=== PATIENT | female | born 1945 | race Caucasian/White ===

== ENCOUNTER 2019-05-01 05:50 | Day surgery (SDC) | payer OTHER ==
[~2019-05-01] VITALS: Ht 154.9 cm; Wt 76.0 kg
[~2019-05-01 05:50] MED LIST: ALBU3IS INH; ASPI325 PO; ASPI325EC PO; ASPI81CH PO; ATEN25 PO; ATEN50; ATEN50 PO; ATOR40TA PO; BENAML10/2 PO; CEPH500 PO; CHOL10002 PO; CLIN150 PO; ESCI10; ESCI20 PO; ESCI5 PO; EXEN5PENI SC; FLUSAL2505 IH; FURO40; FURO40 PO; GLIM4; GLIP10 PO; GLIP5 PO; Humalog100 UNIT/1; INSULANI SC; INSULANI SUBQ; INSULANPEN SC; ISOMON30 PO; Isosorbide Mono60 MG PO; K-Dur 20 meq T20 MEQ PO; K-Dur10 MEQ PO; LEVSOD100 PO; LEVSOD50 PO; LISI5 PO; LOTREL; Lopressor 25 mg25 MG PO; METF500 PO; METF500C PO; METO25 PO; OXYACE5T PO; POTA10T; POTA10T PO; POTCHL20ER PO; PROM25 PO; Prednisone10 MG PO; ROSI4; RXCEPH500 PO; RXCLIN PO; WARF5 PO
--- NOTE | 2019-05-01 10:30 | NUR ---
DR FISHMAN IN ROOM DISCUSSING PLAN OF CARE WITH PT AND FAMILY. VSS. NADN. R FEMORAL SITE REMAINS STABLE. CALL LIGHT WITHIN REACH.
--- NOTE | 2019-05-01 12:30 | NUR ---
PT SITTING UP IN BED, GRACIA. VSS. R FEM SITE REMAINS CLEAR. CALL LIGHT WITHIN REACH. PT EATING LUNCH AT THIS TIME.
--- NOTE | 2019-05-01 13:14 | NUR ---
PT ASSISTED TO RESTROOM AND BACK WITHOUT DIFF. PT ASSISTS WITH DRESSING SELF. VSS. NADN. PT AND DAUGHTER VERBALIZES UNDERSTANDING WRITTEN AND VERBAL ORDERS. IV DC'D. CATH INTACT. PRESSURE DSG APPLIED. FEM SITE REMAINS STABLE. PT DC TO HOME VIA WC BY DAUGHTER.
== END 2019-05-01 22:46 | disposition home or self-care (01) ==
LOC: MHTC 05:50
DX: T82.858A Stenosis of other vascular prosthetic devices, implants and grafts, initial encounter (principal); I25.10 Atherosclerotic heart disease of native coronary artery without angina pectoris; I25.5 Ischemic cardiomyopathy; I27.20 Pulmonary hypertension, unspecified; I08.1 Rheumatic disorders of both mitral and tricuspid valves; E11.42 Type 2 diabetes mellitus with diabetic polyneuropathy; E11.319 Type 2 diabetes mellitus with unspecified diabetic retinopathy without macular edema; E78.00 Pure hypercholesterolemia, unspecified; E11.22 Type 2 diabetes mellitus with diabetic chronic kidney disease; I12.9 Hypertensive chronic kidney disease with stage 1 through stage 4 chronic kidney disease, or unspecified chronic kidney disease; N18.3 Chronic kidney disease, stage 3 (moderate); Z79.899 Other long term (current) drug therapy; Z88.2 Allergy status to sulfonamides; Z86.73 Personal history of transient ischemic attack (TIA), and cerebral infarction without residual deficits; Z88.4 Allergy status to anesthetic agent
CPT/HCPCS: 82947; 86850; 86900; 86901; 93461; 99152; 99153; C1769; C1894; J1644; J2250; J3010; J7030; Q9967

== ENCOUNTER 2019-10-13 06:31 | Day surgery (SDC) | payer OTHER ==
[~2019-10-13] VITALS: Ht 154.9 cm; Wt 76.3 kg
[~2019-10-13 06:31] MED LIST changes: +ALBU90OI INH; +CARV3.125 PO; +CLOP75 PO; +LOSA25 PO; +LOW DOSE ASPIRI81 M1; +PANT40 PO; +THERA-D2000 UNIT PO
--- NOTE | 2019-10-13 12:30 | NUR ---
Pt arrived to room [id number] from HC. VSS. LS clear. HR reg. Pacer site to R chest wall without oozing, swelling, bleeding or pain. Bulkey dressing intact. Pt oriented to room and unit. Call light in reach.
--- NOTE | 2019-10-13 19:26 | NUR ---
Pt resting in bed with family at bedside. Has done well this shift. Has denied pain to R chest wall throughout the shift. VSS throughout the shift. No changes in pacer site. Stable at end of shift. Will report to night Rn.
--- NOTE | 2019-10-14 07:27 | NUR ---
SHIFT SUMMARY PATIENT PLEASENT AND COOPERATIVE THROUGHOUT THE NIGHT. PATIENT APPEARED TO SLEEP WELL LAST NIGHT. PATIENT DENIES ANY PAIN OR DISCOMFORT THIS MORNING STATING, "I FEEL GOOD." PATIENT'S PACEMAKER SITE APPEARS TO HAVE NO SIGNS OF BLEEDING AT THIS TIME. SLING IN PLACE PER ORDERS. IV ABX GIVEN PER ORDERS. BEDSIDE REPORT GIVEN TO ONCOMING RN.
--- NOTE | 2019-10-14 07:30 | NUR ---
Pt sitting up in chair eating breakfast. Denies pain. States that she is feeling good and that she will get to go home after her xray. LS clear. HR reg. Bt positive. Pacer site with dressing c/d/i. R arm in sling. Denies other needs. Call light in reach. Will monitor.
--- NOTE | 2019-10-14 09:55 | NUR ---
Pt was given verbal and cole discharge instructions. IV was discontinued, cath intact. Pt denies questions or concerns about discharge. Pt had assistance with getting dressed from MAIL SORTER. Left via w/c with MAIL SORTER. Stable at time of discharge.
== END 2019-10-14 09:55 | disposition home or self-care (01) ==
LOC: MHTC 06:31 → PCU 11:00 → MHTC 10-14 09:55
DX: I25.5 Ischemic cardiomyopathy (principal); I25.10 Atherosclerotic heart disease of native coronary artery without angina pectoris; E11.42 Type 2 diabetes mellitus with diabetic polyneuropathy; E78.5 Hyperlipidemia, unspecified; E11.319 Type 2 diabetes mellitus with unspecified diabetic retinopathy without macular edema; E11.22 Type 2 diabetes mellitus with diabetic chronic kidney disease; I13.10 Hypertensive heart and chronic kidney disease without heart failure, with stage 1 through stage 4 chronic kidney disease, or unspecified chronic kidney disease; N18.3 Chronic kidney disease, stage 3 (moderate); F41.9 Anxiety disorder, unspecified; F32.9 Major depressive disorder, single episode, unspecified; I25.810 Atherosclerosis of coronary artery bypass graft(s) without angina pectoris; I25.82 Chronic total occlusion of coronary artery; E78.00 Pure hypercholesterolemia, unspecified; I27.20 Pulmonary hypertension, unspecified; I08.1 Rheumatic disorders of both mitral and tricuspid valves; Z86.73 Personal history of transient ischemic attack (TIA), and cerebral infarction without residual deficits; Z79.4 Long term (current) use of insulin; Z79.82 Long term (current) use of aspirin; Z88.4 Allergy status to anesthetic agent; Z88.2 Allergy status to sulfonamides; Z79.899 Other long term (current) drug therapy; Z79.02 Long term (current) use of antithrombotics/antiplatelets
CPT/HCPCS: 33249; 71045; 71046; 76937; 82947; 99152; 99153; C1721; C1769; C1895; C1898; J0690; J1644; J2250; J3010; J7030; J7040; J7050

== ENCOUNTER 2020-01-12 13:49 | Inpatient (IN) | payer OTHER ==
[~2020-01-12] VITALS: Ht 152.4 cm; Wt 84.0 kg
[~2020-01-12 13:49] MED LIST changes: +FURO20 PO
[2020-01-12 15:20] LABS: BASOPHILS ABSOLUTE AUTO 0.02 K/mm3 (0.00-0.23); BASOPHILS PERCENT AUTO 1 % (0-2); EOSINOPHILS ABSOLUTE AUTO 0.07 K/mm3 (0.00-0.68); EOSINOPHILS PERCENT AUTO 2 % (0-6); Hematocrit 41.1 % (33.0-51.0); Hemoglobin 12.7 g/dL (11.5-16.0); IMMATURE GRAN PERCENT AUTO 0 % (0-1); LYMPHOCYTES ABSOLUTE AUTO 1.03 K/mm3 (0.84-5.20); LYMPHOCYTES PERCENT AUTO 25 % (21-46); MONOCYTES ABSOLUTE AUTO 0.33 K/mm3 (0.16-1.47); MONOCYTES PERCENT AUTO 8 % (4-13); Mean Corpuscular HGB 29.2 pg (26.0-34.0); Mean Corpuscular HGB Conc 30.9 g/dL (31.5-36.5); Mean Corpuscular Volume 95 fL (80-100); Mean Platelet Volume 11.6 fL (9.1-12.4); NEUTROPHILS ABSOLUTE AUTO 2.71 K/mm3 (1.96-9.15); NEUTROPHILS PERCENT AUTO 65 % (41-73); Platelet Count 189 K/mm3 (150-400); RDW Coefficient Variation 15.2 % (11.7-14.2); RDW Standard Deviation 52.6 fL (35.1-46.3); Red Blood Cell Count 4.35 M/mm3 (3.80-5.20); White Blood Cell Count 4.16 K/mm3 (4.00-11.30)
[2020-01-12 15:41] LABS: Albumin, Blood 3.9 g/dL (3.4-5.0); Bilirubin, Total 0.8 mg/dL (0.1-1.0); Bun/Creatinine Ratio 26.3 (12.0-20.0); Calcium, Blood 9.5 mg/dL (8.5-10.1); Creatinine, Blood 1.86 mg/dL (0.40-1.00); Globulin, Blood 4.1 g/dL (2.2-4.0); Potassium, Blood 4.9 mmol/L (3.5-5.5)
[2020-01-12] MEDS ORDERED: ASPI325 PO (19:39)
[2020-01-12] MEDS ORDERED: SYNTHROID50 MC1 PO (20:31)
[2020-01-12] MEDS ORDERED: Klor-Con 1010 MEQ PO (20:33)
[2020-01-12] MEDS ORDERED: PANTOPRAZOLE SO40 M2 PO (20:33)
[2020-01-13 05:22] LABS: BASOPHILS ABSOLUTE AUTO 0.02 K/mm3 (0.00-0.23); BASOPHILS PERCENT AUTO 1 % (0-2); EOSINOPHILS PERCENT AUTO 3 % (0-6); Hematocrit 38.2 % (33.0-51.0); Hemoglobin 11.5 g/dL (11.5-16.0); IMMATURE GRAN ABSOLUTE AUTO 0.01 K/mm3 (0.00-0.10); IMMATURE GRAN PERCENT AUTO 0 % (0-1); LYMPHOCYTES PERCENT AUTO 29 % (21-46); MONOCYTES ABSOLUTE AUTO 0.47 K/mm3 (0.16-1.47); MONOCYTES PERCENT AUTO 12 % (4-13); Mean Corpuscular HGB 28.8 pg (26.0-34.0); Mean Corpuscular HGB Conc 30.1 g/dL (31.5-36.5); Mean Corpuscular Volume 96 fL (80-100); Mean Platelet Volume 11.4 fL (9.1-12.4); NEUTROPHILS ABSOLUTE AUTO 2.15 K/mm3 (1.96-9.15); NEUTROPHILS PERCENT AUTO 56 % (41-73); Platelet Count 145 K/mm3 (150-400); RDW Coefficient Variation 15.3 % (11.7-14.2); Red Blood Cell Count 3.99 M/mm3 (3.80-5.20); White Blood Cell Count 3.85 K/mm3 (4.00-11.30)
[2020-01-13 05:37] LABS: Bun/Creatinine Ratio 26.5 (12.0-20.0); Calcium, Blood 9.2 mg/dL (8.5-10.1); Creatinine, Blood 1.85 mg/dL (0.40-1.00); Potassium, Blood 4.3 mmol/L (3.5-5.5)
[2020-01-14 05:17] LABS: Albumin, Blood 3.3 g/dL (3.4-5.0); Anion Gap 8 mmol/L (6-16); Blood Urea Nitrogen 54 mg/dL (8-24); CO2, Blood 26 mmol/L (21-32); Calcium, Blood 9.2 mg/dL (8.5-10.1); Chloride, Blood 107 mmol/L (98-108); Creatinine, Blood 2.16 mg/dL (0.40-1.00); Glomerular Filtration Rate 24 (60-); Glucose, Blood 150 mg/dL (70-99); Phosphorus, Blood 4.4 mg/dL (2.5-4.9); Potassium, Blood 4.1 mmol/L (3.5-5.5); Sodium, Blood 141 mmol/L (136-145)
[2020-01-15 06:06] LABS: Albumin, Blood 3.3 g/dL (3.4-5.0); Anion Gap 6 mmol/L (6-16); Blood Urea Nitrogen 54 mg/dL (8-24); Bun/Creatinine Ratio 26.1 (12.0-20.0); CO2, Blood 27 mmol/L (21-32); Chloride, Blood 107 mmol/L (98-108); Creatinine, Blood 2.07 mg/dL (0.40-1.00); Glomerular Filtration Rate 25 (60-); Glucose, Blood 108 mg/dL (70-99); Phosphorus, Blood 4.2 mg/dL (2.5-4.9); Sodium, Blood 140 mmol/L (136-145)
[2020-01-16 05:27] LABS: Albumin, Blood 3.3 g/dL (3.4-5.0); Anion Gap 7 mmol/L (6-16); Blood Urea Nitrogen 53 mg/dL (8-24); Bun/Creatinine Ratio 23.2 (12.0-20.0); CO2, Blood 29 mmol/L (21-32); Calcium, Blood 8.9 mg/dL (8.5-10.1); Chloride, Blood 105 mmol/L (98-108); Creatinine, Blood 2.28 mg/dL (0.40-1.00); Glomerular Filtration Rate 22 (60-); Glucose, Blood 121 mg/dL (70-99); Phosphorus, Blood 4.4 mg/dL (2.5-4.9); Potassium, Blood 4.1 mmol/L (3.5-5.5); Sodium, Blood 141 mmol/L (136-145)
[2020-01-17 08:25] LABS: Albumin, Blood 3.3 g/dL (3.4-5.0); Anion Gap 6 mmol/L (6-16); Blood Urea Nitrogen 56 mg/dL (8-24); Bun/Creatinine Ratio 25.9 (12.0-20.0); CO2, Blood 30 mmol/L (21-32); Calcium, Blood 8.8 mg/dL (8.5-10.1); Chloride, Blood 105 mmol/L (98-108); Creatinine, Blood 2.16 mg/dL (0.40-1.00); Glomerular Filtration Rate 24 (60-); Glucose, Blood 165 mg/dL (70-99); Sodium, Blood 141 mmol/L (136-145)
[2020-01-17] MEDS ORDERED: FURO20 PO (11:30)
[2020-01-17] MEDS ORDERED: ASPI325 PO (11:33)
[2020-01-17] MEDS ORDERED: PROAIR DIGIHAL90 MCG INH (11:35)
[2020-01-17] MEDS ORDERED: VITAMIN D-32000 UNIT PO (11:39)
== END 2020-01-17 16:00 | disposition home or self-care (01) | DRG 291 ==
LOC: ER 13:49 → MEDS 13:50 → ER 13:50 → MEDS 21:48
PROVIDERS: Internal Medicine; Physician Assistant; ADMIT Internal Medicine
DX: I13.0 Hypertensive heart and chronic kidney disease with heart failure and stage 1 through stage 4 chronic kidney disease, or unspecified chronic kidney disease (principal); I50.23 Acute on chronic systolic (congestive) heart failure; J96.01 Acute respiratory failure with hypoxia; N18.3 Chronic kidney disease, stage 3 (moderate); E11.22 Type 2 diabetes mellitus with diabetic chronic kidney disease; I25.10 Atherosclerotic heart disease of native coronary artery without angina pectoris; I25.5 Ischemic cardiomyopathy; I27.20 Pulmonary hypertension, unspecified; E78.5 Hyperlipidemia, unspecified; F32.9 Major depressive disorder, single episode, unspecified; K21.9 Gastro-esophageal reflux disease without esophagitis; E11.42 Type 2 diabetes mellitus with diabetic polyneuropathy; E11.319 Type 2 diabetes mellitus with unspecified diabetic retinopathy without macular edema; Z95.1 Presence of aortocoronary bypass graft; Z95.810 Presence of automatic (implantable) cardiac defibrillator; Z79.82 Long term (current) use of aspirin; Z79.84 Long term (current) use of oral hypoglycemic drugs; Z79.02 Long term (current) use of antithrombotics/antiplatelets
CPT/HCPCS: 36415; 80048; 80053; 80069; 82947; 83880; 84145; 85025; 96372; 96374; 96376; 97112; 97162; 99284-25; A9270-GY; G0378; J1650; J1940

== ENCOUNTER 2021-03-03 13:38 | Emergency (ER) | payer OTHER ==
[~2021-03-03] VITALS: Ht 152.4 cm; Wt 74.8 kg
[~2021-03-03 13:38] MED LIST changes: +Klor-Con 1010 MEQ PO; +PANTOPRAZOLE SO40 M2 PO; +PROAIR DIGIHAL90 MCG INH; +SYNTHROID50 MC1 PO; +VITAMIN D-32000 UNIT PO
[2021-03-03 14:39] LABS: BASOPHILS ABSOLUTE AUTO 0.02 K/mm3 (0.00-0.23); BASOPHILS PERCENT AUTO 0 % (0-2); EOSINOPHILS PERCENT AUTO 2 % (0-6); Hematocrit 38.3 % (33.0-51.0); Hemoglobin 12.1 g/dL (11.5-16.0); IMMATURE GRAN ABSOLUTE AUTO 0.01 K/mm3 (0.00-0.10); IMMATURE GRAN PERCENT AUTO 0 % (0-1); LYMPHOCYTES ABSOLUTE AUTO 0.96 K/mm3 (0.84-5.20); LYMPHOCYTES PERCENT AUTO 19 % (21-46); MONOCYTES ABSOLUTE AUTO 0.35 K/mm3 (0.16-1.47); MONOCYTES PERCENT AUTO 7 % (4-13); Mean Corpuscular HGB 30.3 pg (26.0-34.0); Mean Corpuscular HGB Conc 31.6 g/dL (31.5-36.5); Mean Corpuscular Volume 96 fL (80-100); Mean Platelet Volume 11.5 fL (9.1-12.4); NEUTROPHILS ABSOLUTE AUTO 3.65 K/mm3 (1.96-9.15); NEUTROPHILS PERCENT AUTO 72 % (41-73); Platelet Count 158 K/mm3 (150-400); RDW Coefficient Variation 13.4 % (11.7-14.2); RDW Standard Deviation 47.7 fL (35.1-46.3); White Blood Cell Count 5.09 K/mm3 (4.00-11.30)
[2021-03-03 15:04] LABS: Troponin I <0.015 ng/mL (0.000-0.040)
[2021-03-03 15:15] LABS: Free Thyroxine 1.2 ng/dL (0.70-1.60)
[2021-03-03 15:17] LABS: Alanine Aminotransfer (ALT/SGP 19 U/L (12-78); Albumin, Blood 3.7 g/dL (3.4-5.0); Alk Phos 62 U/L (50-136); Anion Gap 3 mmol/L (6-16); Aspartate Aminotrans (AST/SGOT 16 U/L (12-37); Bilirubin, Total 0.8 mg/dL (0.1-1.0); Blood Urea Nitrogen 43 mg/dL (8-24); Bun/Creatinine Ratio 22.4 (12.0-20.0); CO2, Blood 29 mmol/L (21-32); Calcium, Blood 9.6 mg/dL (8.5-10.1); Chloride, Blood 107 mmol/L (98-108); Creatinine, Blood 1.92 mg/dL (0.40-1.00); Globulin, Blood 3.8 g/dL (2.2-4.0); Glomerular Filtration Rate 27 (60-); Glucose, Blood 147 mg/dL (70-99); Sodium, Blood 139 mmol/L (136-145); Thyroid Stimulating Hormone 1.15 uIU/mL (0.360-4.800); Total Protein, Blood 7.5 g/dL (6.4-8.2)
[2021-03-03 15:48] LABS: Source, Urine Clean Catch
[2021-03-03 15:53] LABS: Appearance, Urine Hazy (Clear); Bilirubin, Urine Neg (Neg); Blood, Urine 3+ (Neg); Color, Urine Yellow (P-Yellow); Glucose Qualitative, Urine Neg (Neg); Ketones, Urine Neg (Neg); Leukocyte Esterase, Urine 3+ (Neg); Nitrite, Urine Neg (Neg); Protein, Urine 1+ (Neg); Specific Gravity, Urine 1.015 (1.003-1.022); Urobilinogen, Urine NORM (Normal)
[2021-03-03 16:33] LABS: White Blood Cells, Urine 50-100 /hpf (0-5)
[2021-03-03 16:34] LABS: Bacteria Many /hpf; Squamous Epithelial Cells Few /hpf (Few)
[2021-03-03] MEDS ORDERED: KLOR-CON 1010 ME2 PO (16:42)
== END 2021-03-03 18:15 | disposition home or self-care (01) ==
LOC: ER 13:38
PROVIDERS: Physician Assistant
DX: R06.02 Shortness of breath (principal); R53.1 Weakness; I13.0 Hypertensive heart and chronic kidney disease with heart failure and stage 1 through stage 4 chronic kidney disease, or unspecified chronic kidney disease; N18.9 Chronic kidney disease, unspecified; I50.9 Heart failure, unspecified; E78.5 Hyperlipidemia, unspecified; Z88.2 Allergy status to sulfonamides; Z88.4 Allergy status to anesthetic agent; Z79.82 Long term (current) use of aspirin; Z79.02 Long term (current) use of antithrombotics/antiplatelets; Z79.899 Other long term (current) drug therapy; Z45.02 Encounter for adjustment and management of automatic implantable cardiac defibrillator; I42.9 Cardiomyopathy, unspecified
CPT/HCPCS: 36415; 71046; 80053; 81001; 83880; 84439; 84443; 84484; 85025; 87077; 87086; 87186; 93005; 93010; 93283; 96374; 99285-25; J1940

== ENCOUNTER 2021-03-12 17:54 | Inpatient (IN) | payer OTHER ==
[~2021-03-12] VITALS: Ht 165.1 cm; Wt 73.6 kg
[~2021-03-12 17:54] MED LIST changes: +KLOR-CON 1010 ME2 PO
[2021-03-12 18:23] LABS: BASOPHILS ABSOLUTE AUTO 0.02 K/mm3 (0.00-0.23); BASOPHILS PERCENT AUTO 0 % (0-2); EOSINOPHILS ABSOLUTE AUTO 0.04 K/mm3 (0.00-0.68); EOSINOPHILS PERCENT AUTO 1 % (0-6); Hemoglobin 12.2 g/dL (11.5-16.0); IMMATURE GRAN ABSOLUTE AUTO 0.02 K/mm3 (0.00-0.10); IMMATURE GRAN PERCENT AUTO 0 % (0-1); LYMPHOCYTES ABSOLUTE AUTO 1.12 K/mm3 (0.84-5.20); LYMPHOCYTES PERCENT AUTO 23 % (21-46); MONOCYTES ABSOLUTE AUTO 0.35 K/mm3 (0.16-1.47); MONOCYTES PERCENT AUTO 7 % (4-13); Mean Corpuscular HGB 30.4 pg (26.0-34.0); Mean Corpuscular HGB Conc 32.1 g/dL (31.5-36.5); Mean Corpuscular Volume 95 fL (80-100); Mean Platelet Volume 11.8 fL (9.1-12.4); NEUTROPHILS ABSOLUTE AUTO 3.26 K/mm3 (1.96-9.15); NEUTROPHILS PERCENT AUTO 68 % (41-73); Platelet Count 154 K/mm3 (150-400); RDW Coefficient Variation 13.2 % (11.7-14.2); RDW Standard Deviation 46.2 fL (35.1-46.3); Red Blood Cell Count 4.01 M/mm3 (3.80-5.20); White Blood Cell Count 4.81 K/mm3 (4.00-11.30)
[2021-03-12] MEDS ORDERED: TORS10 PO ×2 (18:25→21:05)
[2021-03-12 18:52] LABS: Albumin, Blood 3.7 g/dL (3.4-5.0); Albumin/Globulin Ratio 0.9 (0.8-1.8); Anion Gap 8 mmol/L (6-16); Aspartate Aminotrans (AST/SGOT 20 U/L (12-37); Bilirubin, Total 0.6 mg/dL (0.1-1.0); Blood Urea Nitrogen 51 mg/dL (8-24); Bun/Creatinine Ratio 18.3 (12.0-20.0); CO2, Blood 24 mmol/L (21-32); Calcium, Blood 9.2 mg/dL (8.5-10.1); Chloride, Blood 102 mmol/L (98-108); Creatinine, Blood 2.78 mg/dL (0.40-1.00); Globulin, Blood 3.9 g/dL (2.2-4.0); Glomerular Filtration Rate 18 (60-); Glucose, Blood 339 mg/dL (70-99); Magnesium, Blood 2.4 mg/dL (1.6-2.4); Phosphorus, Blood 4.6 mg/dL (2.5-4.9); Potassium, Blood 4.8 mmol/L (3.5-5.5); Sodium, Blood 134 mmol/L (136-145); Total Protein, Blood 7.6 g/dL (6.4-8.2); Troponin I <0.015 ng/mL (0.000-0.040)
[2021-03-12 19:23] LABS: Alanine Aminotransfer (ALT/SGP 22 U/L (12-78); Alk Phos 72 U/L (50-136)
[2021-03-12 19:47] LABS: Source, Urine Clean Catch
[2021-03-12 19:50] LABS: Appearance, Urine Hazy (Clear); Bilirubin, Urine Neg (Neg); Blood, Urine 2+ (Neg); Color, Urine Yellow (P-Yellow); Glucose Qualitative, Urine Neg (Neg); Ketones, Urine Neg (Neg); Leukocyte Esterase, Urine 1+ (Neg); Nitrite, Urine Neg (Neg); Protein, Urine 3+ (Neg); Specific Gravity, Urine 1.025 (1.003-1.022); Urobilinogen, Urine NORM (Normal)
[2021-03-12 20:00] LABS: Squamous Epithelial Cells Many /hpf (Few)
[2021-03-12 20:03] LABS: Bacteria Rare /hpf
[2021-03-12] MEDS ORDERED: ESCI20 PO (21:08)
[2021-03-13 02:52] LABS: Troponin I 0.568 ng/mL (0.000-0.040)
--- NOTE | 2021-03-13 02:53 | NUR ---
CRITICAL VALUE RECEIVED PHONE CALL FROM HALI IN LAB AT 0250, WITH CRITICAL VALUE OF TROPONIN [phone]. NOTIFIED CHARGE NURSE.
[2021-03-13 05:22] LABS: BASOPHILS ABSOLUTE AUTO 0.01 K/mm3 (0.00-0.23); BASOPHILS PERCENT AUTO 0 % (0-2); EOSINOPHILS PERCENT AUTO 0 % (0-6); Hematocrit 44.1 % (33.0-51.0); IMMATURE GRAN ABSOLUTE AUTO 0.05 K/mm3 (0.00-0.10); IMMATURE GRAN PERCENT AUTO 1 % (0-1); LYMPHOCYTES ABSOLUTE AUTO 1.06 K/mm3 (0.84-5.20); LYMPHOCYTES PERCENT AUTO 11 % (21-46); MONOCYTES ABSOLUTE AUTO 0.86 K/mm3 (0.16-1.47); MONOCYTES PERCENT AUTO 9 % (4-13); Mean Corpuscular HGB Conc 31.7 g/dL (31.5-36.5); Mean Corpuscular Volume 94 fL (80-100); Mean Platelet Volume 12.1 fL (9.1-12.4); NEUTROPHILS ABSOLUTE AUTO 7.88 K/mm3 (1.96-9.15); NEUTROPHILS PERCENT AUTO 80 % (41-73); Platelet Count 119 K/mm3 (150-400); RDW Coefficient Variation 13.3 % (11.7-14.2); RDW Standard Deviation 46.5 fL (35.1-46.3); Red Blood Cell Count 4.67 M/mm3 (3.80-5.20); White Blood Cell Count 9.86 K/mm3 (4.00-11.30)
--- NOTE | 2021-03-13 06:30 | NUR ---
SHIFT SUMMARY PT ARRIVED TO PCU AT 2222 FROM ER, SHE AMBULATED INDEPENDENTLY WITH SBA FROM THE ER GURNEY TO THE PCU BED. 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 PT HAS NOT BEEN ON DIALYSIS FOR A "FEW YEARS". PT HAS AN IMPLANTED PACEMAKER ON HER RIGHT CHEST WALL. SHE EXPERIENCED NAUSEA/VOMITING DURING THIS SHIFT. SHE RECEIVED ZOFRAN IN THE ER, AND ONCE IN PCU WHICH DIDN'T PROVIDE RELIEF. RN PLACED CALL TO DR. DAVID, HOSPITALIST, AND RECEIVED ORDER FOR 25 MG PHENERGAN PO Q 6 HRS PRN. PT HAD THREE EPISODES OF EMESIS, CONSISTING OF IDENTIFIABLE PIECES OF HER DINNER FROM WEDNESDAY AT 5PM. PT REPORTS SHE HAS NOT HAD A BM IN "A COUPLE DAYS". SHE HAS A HISTORY OF AN ABD HERNIA. SHE REPORTS THAT SHE'S EXPERIENCED ABD PAIN X "A FEW DAYS" PRIOR TO HER ADMISSION HERE. SHE REMAINED IN A-FIB FOR MOST OF THE SHIFT. VSS. ROOM AIR. WILL CONTINUE TO MONITOR.
[2021-03-13 07:26] LABS: Albumin, Blood 3.7 g/dL (3.4-5.0); Bilirubin, Total 1.8 mg/dL (0.1-1.0); Bun/Creatinine Ratio 18.8 (12.0-20.0); Calcium, Blood 8.9 mg/dL (8.5-10.1); Creatinine, Blood 3.14 mg/dL (0.40-1.00); Globulin, Blood 3.6 g/dL (2.2-4.0); Potassium, Blood 6.2 mmol/L (3.5-5.5); Total Protein, Blood 7.3 g/dL (6.4-8.2)
--- NOTE | 2021-03-13 13:45 | NUR ---
PT ALERT AND ORIENTED X4. VERY SLEEPY THIS AM AND THROUGHOUT THE AFTERNOON. RECIEVED PHENERGAN THIS AM FOR NAUSEA. NAUSEA RESOLVED. NOT INTERESTED IN EATING DUE TO SLEEPINESS. NEURO WITHIN NORMAL LIMITS. TELE SHOWING SINUS WITH HR 60-70'S. AT TIMES I HAVE SEEN ATRIAL PACING ON MONITOR. HX OF PACEMAKER. DENIES CHEST PAIN/PRESSURE. VITAL SIGNS STABLE. CARDIOLOGY CONSULT. ECHO AND EKG DONE THIS AM. HIGH POTASSIUM THIS AM, DR. PAREDES CALLED AND NEW ORDERS PLACED. PT MOVED TO MEDIUM SLIDING SCALE FOR INSULIN COVERAGE. ACHS IN PLACE. PLAN FOR RENAL AND BLADDER ULTRASOUND THIS AFTERNOON. HEPARIN INFUSING AMIO DISCONTINUED. PO AMIO ORDERED FOR THIS EVENING. PT HAS HAD NO URINE OUTPUT. DR. LEE AWARE, BLADDER SCAN ORDERED WITH 149ML. NEW ORDERS FOR NORMAL SALINE TO INFUSE 1L TOTAL. NS INFUSING AT THIS TIME. CALL LIGHT IN REACH. BED IN LOW LOCKED POSITION. WILL CONTINUE TO MONITOR.
[2021-03-13 13:48] LABS: Bun/Creatinine Ratio 18.9 (12.0-20.0); Calcium, Blood 9.5 mg/dL (8.5-10.1); Creatinine, Blood 3.34 mg/dL (0.40-1.00); Potassium, Blood 5.7 mmol/L (3.5-5.5)
[2021-03-13 14:12] LABS: Troponin I 0.378 ng/mL (0.000-0.040)
--- NOTE | 2021-03-13 16:50 | NUR ---
SHIFT SUMMARY: SEE PREVIOSU NOTES FOR UPDATES. PT REMAINS ALERT AND ORIENTED X4, BUT STILL VERY SLEEPY. TELE REMAINS SINUS WITH HR 70'S. DAUGHTER AT BEDSIDE. RENAL ULTRASOUND DONE. CALL PLACED TO [facility] FOR UPDATE. WHEN AT BEDSIDE ADMINISTERING EVENING HUMALOG PT BEGAN TO VOMIT A SMALL AMOUNT OF WHAT LOOKS LIKE COFFEE GROUND EMISIS. PT STATES SHE IS FEELING NAUSEOUS AND THAT HER STOMACH HURTS. BOWEL TONES PRESENT, ZOFRAN ADMINISTERED. CALL PLACED TO DR. LEE. OCCULT SMEAR DONE, WITH TEST STRIP TURNING BLUE. NEW ORDERS TO DC FLUIDS AND PROTONIX IV. FIRST DOSE OF PROTONIX IV ADMINISTERED. PT NAUSEA RESOLVING. VITAL SIGNS REMAIN STABLE WITH SOFTER BP'S. PT DID NOT EAT TODAY, DRINKING MINIMAL WATER. ONE EPISODE OF URINE OUTPUT AT 55ML ON BSC. UP TO BSC WITH ENCOURAGEMENT FROM TWO STAFF MEMBERS. DR. LEE AWARE OF URINE OUTPUT. ATTENDS IN PLACE. WILL CONTINUE TO MONITOR AND REPORT OFF.
[2021-03-13 20:23] LABS: BASOPHILS ABSOLUTE AUTO 0.02 K/mm3 (0.00-0.23); BASOPHILS PERCENT AUTO 0 % (0-2); EOSINOPHILS PERCENT AUTO 0 % (0-6); Hematocrit 38.9 % (33.0-51.0); Hemoglobin 12.4 g/dL (11.5-16.0); IMMATURE GRAN ABSOLUTE AUTO 0.07 K/mm3 (0.00-0.10); IMMATURE GRAN PERCENT AUTO 1 % (0-1); LYMPHOCYTES ABSOLUTE AUTO 1.48 K/mm3 (0.84-5.20); LYMPHOCYTES PERCENT AUTO 11 % (21-46); MONOCYTES ABSOLUTE AUTO 1.05 K/mm3 (0.16-1.47); MONOCYTES PERCENT AUTO 7 % (4-13); Mean Corpuscular HGB 30.2 pg (26.0-34.0); Mean Corpuscular HGB Conc 31.9 g/dL (31.5-36.5); Mean Corpuscular Volume 95 fL (80-100); Mean Platelet Volume 12.5 fL (9.1-12.4); NEUTROPHILS ABSOLUTE AUTO 11.48 K/mm3 (1.96-9.15); NEUTROPHILS PERCENT AUTO 82 % (41-73); Platelet Count 89 K/mm3 (150-400); RDW Coefficient Variation 13.3 % (11.7-14.2); RDW Standard Deviation 46.7 fL (35.1-46.3); Red Blood Cell Count 4.11 M/mm3 (3.80-5.20)
[2021-03-13 20:39] LABS: Bun/Creatinine Ratio 19.7 (12.0-20.0); Calcium, Blood 9.1 mg/dL (8.5-10.1); Creatinine, Blood 3.46 mg/dL (0.40-1.00); Potassium, Blood 5.6 mmol/L (3.5-5.5)
--- NOTE | 2021-03-13 21:31 | NUR ---
DR. WILLIAMSON BEDSIDE WITH PATIENT
--- NOTE | 2021-03-14 02:13 | NUR ---
PT HAD CBC DRAWN AT 20:00. RIGHT AC IV PULLED OUT WHILE PT WAS SLEEPING, THE SITE WAS DC'D AND WRAPPED WITH A COBAN. PT DENIES NAUSEA OR VOMITING AT THIS TIME, SHE IS TOLERATING SMALL SIPS OF WATER. STILL NO URINARY OUTPUT OR URGE TO VOID. HEPARIN DRIP IS DC'D. STARTED PO AMIODARONE. TELEMETRY MONITORED PT IN SINUS WITH AN OCCASSIONAL PACED BEAT.
--- NOTE | 2021-03-14 05:44 | NUR ---
CALL TO DOCTOR CALL PLACED TO DR. DAVID WITH CONCERNS FOR LOW BLOOD PRESSURE - SBP 90'S, MAP < 60. PT IS SYMPTOMATIC, C/O DIZZINESS AND WEAKNESS WHEN MOVING IN BED. DENIES NAUSEA/VOMITING. PT HAS NOT VOIDED THIS SHIFT AND DENIES URGE TO VOID. DR. DAVID WITH ORDERS: NS 5OO MLS OVER TWO HOURS, AND ALSO ADDING MORNING LABS CMP AND CBC.
[2021-03-14 06:22] LABS: BASOPHILS ABSOLUTE AUTO 0.03 K/mm3 (0.00-0.23); BASOPHILS PERCENT AUTO 0 % (0-2); EOSINOPHILS PERCENT AUTO 0 % (0-6); Hematocrit 41.4 % (33.0-51.0); Hemoglobin 13.1 g/dL (11.5-16.0); IMMATURE GRAN PERCENT AUTO 1 % (0-1); LYMPHOCYTES ABSOLUTE AUTO 1.82 K/mm3 (0.84-5.20); LYMPHOCYTES PERCENT AUTO 10 % (21-46); MONOCYTES ABSOLUTE AUTO 1.44 K/mm3 (0.16-1.47); MONOCYTES PERCENT AUTO 8 % (4-13); Mean Corpuscular HGB 30.4 pg (26.0-34.0); Mean Corpuscular HGB Conc 31.6 g/dL (31.5-36.5); Mean Corpuscular Volume 96 fL (80-100); Mean Platelet Volume 12.9 fL (9.1-12.4); NEUTROPHILS ABSOLUTE AUTO 14.69 K/mm3 (1.96-9.15); NEUTROPHILS PERCENT AUTO 81 % (41-73); Platelet Count 68 K/mm3 (150-400); RDW Coefficient Variation 13.5 % (11.7-14.2); Red Blood Cell Count 4.31 M/mm3 (3.80-5.20); White Blood Cell Count 18.08 K/mm3 (4.00-11.30)
[2021-03-14 06:49] LABS: Bun/Creatinine Ratio 18.8 (12.0-20.0); Calcium, Blood 9.4 mg/dL (8.5-10.1); Creatinine, Blood 3.84 mg/dL (0.40-1.00); Potassium, Blood 5.8 mmol/L (3.5-5.5)
--- NOTE | 2021-03-14 07:55 | NUR ---
LOW CBG PT HAS LOW CBG AT THIS TIME. PT ALERT. PT ABLE TO TOLERATE 8 OZ OF JUICE AT THIS TIME. WILL RE-CHECK CBG IN 15 MIN.
--- NOTE | 2021-03-14 09:02 | NUR ---
AT 0819, DR. PAREDES WAS CALLED CONCERNING PT'S RENAL AND HEPATIC LABS, MAP'S IN LOW 60'S, AND LACK OF URINARY OUTPUT; ORDER FOR CONSULT TO DR. SHIPMAN IN NEPHROLOGY PROVIDED VIA PHONE; PT'S NURSE REJI HUTTON, NOTIFIED VERBALLY AT 0824 OF NEW CONSULT.
--- NOTE | 2021-03-14 10:00 | NUR ---
UPDATE PHYSICIAN NOTIFIED OF PT'S HYPOTENSIVE STATE. MAP BELOW 65. ORDERS TO CONT FLUIDS AT 100 ML/HR FOR 500 ML'S. ORERS TO HAVE NEPHROLOGY CONSULTED. PHYSICIAN NOTIFIED PT HAS NOT YET HAD URINE OUTPUT AT THIS TIME. BLADDER SCAN REVEALED 200 ML OF URINE IN BLADDER. NO NEW ORDERS AT THIS TIME.
[2021-03-14 14:44] LABS: Albumin, Blood 3.4 g/dL (3.4-5.0); Anion Gap 11 mmol/L (6-16); Blood Urea Nitrogen 75 mg/dL (8-24); Bun/Creatinine Ratio 18.5 (12.0-20.0); CO2, Blood 22 mmol/L (21-32); Calcium, Blood 8.8 mg/dL (8.5-10.1); Chloride, Blood 102 mmol/L (98-108); Creatinine, Blood 4.06 mg/dL (0.40-1.00); Glomerular Filtration Rate 11 (60-); Glucose, Blood 90 mg/dL (70-99); Phosphorus, Blood 6.3 mg/dL (2.5-4.9); Potassium, Blood 5.6 mmol/L (3.5-5.5); Sodium, Blood 135 mmol/L (136-145)
--- NOTE | 2021-03-14 18:02 | NUR ---
Spoke with Dr James and discussed case. Pt and family would benefit from discussion regarding goals of care. Pt admitted to the hospital for Afib with RVR. Pt's medical history and comorbidities include: Ischemic Cardiomyopathy, CAD, CABG, HTN, CKD3, DM2, Diabetic Neuropathy, and Hypercholesterolemia. Echo from this hospital stay show EF of 15-20%. Pt resting in bed upon arrival. Pt is A&OX4. Engaged in therapeutic conversation regarding goals of care. Assessed Pt's understanding of condition of her heart. Pt states "I have a EF of 15%". This RN asked Pt to ellaborate further on what this term means. Pt states "I'm almost ". Engaged in further discussion regarding her heart condition and other comorbidites. Discussed hospice as an option. Educated on hospice philosophy with V/U made by Pt. Pt expresses interest in hospice and reports being in agreement with hospice. Pt gives this RN verbal permission to call her daughter Maddie and relay conversation and wishes. Pt would like to consider further regarding starting comfort measures here at the hospital. Discussed code status with Pt. Educated on life sustaining measures including risk factors and implications of CPR. Pt reports wishes to be DNR. Spoke with Dr James and relayed Pt's wishes for hospice and considering comfort care. Dr James reports she will call and discuss with daughter. Palliative Care will remain available.
--- NOTE | 2021-03-14 19:21 | NUR ---
UPDATE SPOKE WITH NEPHROLOGY REGARDING PT'S BLADDER SCAN. PHYSICIAN ORDER TO HAVE PT HAVE DOBBS CATHETER IN 2 HRS AFTER ANOTHER BLADDER SCAN IF PT UNABLE TO VOID.
--- NOTE | 2021-03-14 19:27 | NUR ---
SHIFT SUMMARY PT ALERT AND ORIENTED X 4. LETHARGIC. MAP BELOW 65. PHYSICIAN AWARE. HR STABLE. OXYGEN SATURATION MAINTAINED ABOVE 92% ON 2 L OF OXYGEN VIA NC. PT TURNED Q 2 HRS AND NEEDED FOR COMFORT. DAUGHTER AT BEDSIDE T/O SHIFT. DAUGHTER TEARFUL AT TIMES. PHYSICIAN TO SEE PT THIS AFTERNOON, PALLIATIVE CARE AT BEDSIDE. CODE STATUS DISCUSSED WITH PT THIS EVENING WITH PHYSICIAN. PT DECIDED TO BECOME DNR STATUS. ORDER PLACED BY PHYSICIAN. PT TO REMAIN PCU STATUS AT THIS TIME. ORDERS PLACED FOR DOBBS CATH D/T RETENTION. PHYSICIAN ORDER TO HAVE DOBBS PLACED AT 2100 AND REASSESS WITH BLADDER SCAN PRIOR TO INSERTION. WILL CONT TO MONITOR UNTIL REPORT GIVEN TO NIGHTSHIFT RN.
--- NOTE | 2021-03-15 04:56 | NUR ---
SHIFT SUMMARY PATIENT IS ALERT AND ORIENTED X4. SOMEWHAT LETHARGIC AT TIMES. Q2 HOUR REPOSITIONING. STATES SHE IS "FEELING BETTER" THIS AM. 02 SATS 98% ON 2L VIA NC. HYPOTENSIVE WITH LAST BP OF 94/51. PATIENT BLADDER SCANNED WITH 303 MLS, PT UNABLE TO VOID ON A BEDPAN AND ASKED TO USE BEDSIDE COMMODE, ASSISTED PATIENT UP AND PT VOIDED 200 MLS. CALL LIGHT IN REACH.
[2021-03-15 07:12] LABS: BASOPHILS ABSOLUTE AUTO 0.03 K/mm3 (0.00-0.23); BASOPHILS PERCENT AUTO 0 % (0-2); EOSINOPHILS ABSOLUTE AUTO 0.01 K/mm3 (0.00-0.68); EOSINOPHILS PERCENT AUTO 0 % (0-6); Hematocrit 34.9 % (33.0-51.0); Hemoglobin 11.1 g/dL (11.5-16.0); IMMATURE GRAN ABSOLUTE AUTO 0.06 K/mm3 (0.00-0.10); IMMATURE GRAN PERCENT AUTO 1 % (0-1); LYMPHOCYTES PERCENT AUTO 14 % (21-46); MONOCYTES PERCENT AUTO 8 % (4-13); Mean Corpuscular HGB 30.3 pg (26.0-34.0); Mean Corpuscular HGB Conc 31.8 g/dL (31.5-36.5); Mean Corpuscular Volume 95 fL (80-100); NEUTROPHILS PERCENT AUTO 78 % (41-73); NRBC ABSOLUTE 0.03 K/mm3 (0.00-0.02); NRBC Auto 0.3 /100 WBC (0.0-0.2); RDW Coefficient Variation 13.6 % (11.7-14.2); RDW Standard Deviation 47.6 fL (35.1-46.3); Red Blood Cell Count 3.66 M/mm3 (3.80-5.20)
[2021-03-15 07:13] LABS: Mean Platelet Volume 13.6 fL (9.1-12.4)
[2021-03-15 07:28] LABS: Albumin, Blood 3.3 g/dL (3.4-5.0); Anion Gap 11 mmol/L (6-16); Blood Urea Nitrogen 84 mg/dL (8-24); Bun/Creatinine Ratio 19.5 (12.0-20.0); CO2, Blood 20 mmol/L (21-32); Calcium, Blood 8.3 mg/dL (8.5-10.1); Chloride, Blood 106 mmol/L (98-108); Creatinine, Blood 4.31 mg/dL (0.40-1.00); Glomerular Filtration Rate 11 (60-); Glucose, Blood 101 mg/dL (70-99); Phosphorus, Blood 6.2 mg/dL (2.5-4.9); Potassium, Blood 4.9 mmol/L (3.5-5.5); Sodium, Blood 137 mmol/L (136-145)
[2021-03-15 07:36] LABS: Platelet Count 47 K/mm3 (150-400)
--- NOTE | 2021-03-15 15:06 | NUR ---
Spoke with Dr Matias and discussed case. Pt resting in bed with her eyes closed. This RN did not disturb Pt at this time. Called and spoke with Pt's daughter Maddie. Received permission from Pt yesterday to speak with daughter. Provided update and reviewed plan of care with Maddie. Engaged in therapeutic discussion regarding conversation that took place yesterday with Pt. Gentle education regarding Pt's heart condition and the potential for frequent hospital visits in the future. Relayed conversation Pt and this RN had regarding hospice with Pt expressing interest. Offered therapeutic listening and answered questions. Maddie expresses appreciation of conversation and is requesting this RN to meet with her and family tomorrow to discuss further with Pt. Palliative Care will F/U for further discussions.
--- NOTE | 2021-03-15 19:17 | NUR ---
SHIFT SUMMARY PT ALERT AND ORIENTED X 4. HR STABLE. BP STABLE, MAP ABOVE 65. PT ABLE TO ASSIST IN TURNS IN BED Q 2 HRS AND NEEDED. OXYGEN SATURATION MAINTAINED ABOVE 92% ON RA. NO CP OR PRESSURE REPORTED. PT 2 PERSON ASSIST TO COMMODE. DEPENDS IN PLACE FOR INCONTINENCE. FAMILY AT BEDSIDE T/O SHIFT. REPORT GIVEN TO REJI SANDOVAL.
[2021-03-16 04:18] LABS: BASOPHILS ABSOLUTE AUTO 0.02 K/mm3 (0.00-0.23); BASOPHILS PERCENT AUTO 0 % (0-2); EOSINOPHILS ABSOLUTE AUTO 0.02 K/mm3 (0.00-0.68); EOSINOPHILS PERCENT AUTO 0 % (0-6); Hematocrit 37.5 % (33.0-51.0); Hemoglobin 11.7 g/dL (11.5-16.0); IMMATURE GRAN PERCENT AUTO 1 % (0-1); LYMPHOCYTES ABSOLUTE AUTO 1.12 K/mm3 (0.84-5.20); LYMPHOCYTES PERCENT AUTO 11 % (21-46); MONOCYTES ABSOLUTE AUTO 0.85 K/mm3 (0.16-1.47); MONOCYTES PERCENT AUTO 8 % (4-13); Mean Corpuscular HGB 30.1 pg (26.0-34.0); Mean Corpuscular HGB Conc 31.2 g/dL (31.5-36.5); Mean Corpuscular Volume 96 fL (80-100); NEUTROPHILS ABSOLUTE AUTO 8.08 K/mm3 (1.96-9.15); NEUTROPHILS PERCENT AUTO 79 % (41-73); NRBC ABSOLUTE 0.13 K/mm3 (0.00-0.02); NRBC Auto 1.3 /100 WBC (0.0-0.2); Platelet Count 52 K/mm3 (150-400); RDW Coefficient Variation 13.8 % (11.7-14.2); RDW Standard Deviation 48.2 fL (35.1-46.3); Red Blood Cell Count 3.89 M/mm3 (3.80-5.20); White Blood Cell Count 10.19 K/mm3 (4.00-11.30)
[2021-03-16 04:22] LABS: Mean Platelet Volume 13.2 fL (9.1-12.4)
--- NOTE | 2021-03-16 04:45 | NUR ---
SHIFT SUMMARY PATIENT IS ALERT AND ORIENTED X4. COOPERATIVE WITH CARE. Q2 HOUR TURNING. 02 SATS 97% ON RA. UP TO BEDSIDE COMMODE WITH 1 PERSON ASSIST. PACED IN THE 70s. VSS, NO ACUTE CHANGES. CALL LIGHT IN REACH.
[2021-03-16 05:27] LABS: Albumin, Blood 3.3 g/dL (3.4-5.0); Albumin/Globulin Ratio 1.1 (0.8-1.8); Bun/Creatinine Ratio 21.8 (12.0-20.0); Calcium, Blood 8.5 mg/dL (8.5-10.1); Creatinine, Blood 4.09 mg/dL (0.40-1.00); Potassium, Blood 4.9 mmol/L (3.5-5.5); Total Protein, Blood 6.3 g/dL (6.4-8.2)
--- NOTE | 2021-03-16 09:32 | NUR ---
REPORT GIVEN REPORT GIVEN TO TABITHA MENDOZA ON MEDICAL FLOOR. PT TO BE TRANSPORTED BY BED WITH ALL BELONGINGS AND FAMILY TO ROOM 313.
--- NOTE | 2021-03-16 10:00 | NUR ---
UPDATE PALLIATIVE CARE AT BEDSIDE WITH FAMILY.
--- NOTE | 2021-03-16 10:33 | NUR ---
Pt resting in bed upon arival. Pt's daughter and granddaughter are at bedside. Engaged in therapeutic discussion regarding current plan of care and plan for hospice once Pt is medicaly stable for D/C. Pt confirms her wishes are for hospice once D/C from hospital. Educated daughter and granddaughter on hospice philosophy with V/U made by family. Answered questions and offered therapeutic listening. Provided list of hospice agencies to choose from. Pt and family express appreciation and report no other concerns at this time. Spoke with Pt's primary RN Roseann and discussed case. Palliative Care will remain available.
--- NOTE | 2021-03-16 19:23 | NUR ---
a+o, call light in reach, bsr shared with noc nurse, family in during visiting hours, medicated as prescribed, rm air, blind legally, reported afib but tele reporting SIN at 74 bpm, saline locked, bsr shared with noc nurse
[2021-03-17 04:55] LABS: BASOPHILS ABSOLUTE AUTO 0.02 K/mm3 (0.00-0.23); BASOPHILS PERCENT AUTO 0 % (0-2); EOSINOPHILS ABSOLUTE AUTO 0.02 K/mm3 (0.00-0.68); EOSINOPHILS PERCENT AUTO 0 % (0-6); Hematocrit 38.6 % (33.0-51.0); Hemoglobin 12.2 g/dL (11.5-16.0); IMMATURE GRAN ABSOLUTE AUTO 0.06 K/mm3 (0.00-0.10); IMMATURE GRAN PERCENT AUTO 1 % (0-1); LYMPHOCYTES ABSOLUTE AUTO 1.66 K/mm3 (0.84-5.20); LYMPHOCYTES PERCENT AUTO 17 % (21-46); MONOCYTES ABSOLUTE AUTO 1.21 K/mm3 (0.16-1.47); MONOCYTES PERCENT AUTO 12 % (4-13); Mean Corpuscular HGB 29.9 pg (26.0-34.0); Mean Corpuscular HGB Conc 31.6 g/dL (31.5-36.5); Mean Corpuscular Volume 95 fL (80-100); NEUTROPHILS ABSOLUTE AUTO 7.07 K/mm3 (1.96-9.15); NEUTROPHILS PERCENT AUTO 70 % (41-73); NRBC ABSOLUTE 0.17 K/mm3 (0.00-0.02); NRBC Auto 1.7 /100 WBC (0.0-0.2); RDW Coefficient Variation 14.1 % (11.7-14.2); RDW Standard Deviation 46.9 fL (35.1-46.3); Red Blood Cell Count 4.08 M/mm3 (3.80-5.20); White Blood Cell Count 10.04 K/mm3 (4.00-11.30)
[2021-03-17 04:57] LABS: Mean Platelet Volume 13.3 fL (9.1-12.4)
[2021-03-17 05:01] LABS: Platelet Count 48 K/mm3 (150-400)
--- NOTE | 2021-03-17 05:14 | NUR ---
SUMMARY NO NEW ISSUES NOTED. PT HAS SLEPT T/O SHIFT W/O ISSUE. PT CURRENTLY SLEEPING AND BREATHING EASY. CALL LIGHT IN REACH AND BED ALARM.
[2021-03-17 05:47] LABS: Albumin, Blood 3.2 g/dL (3.4-5.0); Bilirubin, Total 0.9 mg/dL (0.1-1.0); Bun/Creatinine Ratio 22.9 (12.0-20.0); Calcium, Blood 8.5 mg/dL (8.5-10.1); Creatinine, Blood 4.2 mg/dL (0.40-1.00); Globulin, Blood 3.2 g/dL (2.2-4.0); Potassium, Blood 4.9 mmol/L (3.5-5.5); Total Protein, Blood 6.4 g/dL (6.4-8.2)
--- NOTE | 2021-03-17 18:13 | NUR ---
PT IS A/OX3, PLEASANT AND COOPERATIVE, THE PT IS UP TO THE CHAIR AND THE BSC WITH MINIMAL ASSIST, THE PT WAS UP FOR LUNCH AND DINNER, THE PT WAS MEDICATED FOR NAUSEA BEFORE DINNER, THE PT DENIED ANY PAIN T/O THE DAY, THE PT APPEARS TO BE BREATHING EASILY ON RA AT THIS TIME, THE PTS DAUGHTER WAS IN TO SEE HER TODAY, CALL LIGHT IN REACH, PLAN FOR POSSIBLE DC WITH HOSPICE ON
[2021-03-18 05:36] LABS: BASOPHILS ABSOLUTE AUTO 0.02 K/mm3 (0.00-0.23); BASOPHILS PERCENT AUTO 0 % (0-2); EOSINOPHILS ABSOLUTE AUTO 0.03 K/mm3 (0.00-0.68); EOSINOPHILS PERCENT AUTO 0 % (0-6); Hematocrit 42.3 % (33.0-51.0); Hemoglobin 13.7 g/dL (11.5-16.0); IMMATURE GRAN ABSOLUTE AUTO 0.13 K/mm3 (0.00-0.10); IMMATURE GRAN PERCENT AUTO 1 % (0-1); LYMPHOCYTES PERCENT AUTO 12 % (21-46); MONOCYTES ABSOLUTE AUTO 1.48 K/mm3 (0.16-1.47); MONOCYTES PERCENT AUTO 11 % (4-13); Mean Corpuscular HGB 30.4 pg (26.0-34.0); Mean Corpuscular HGB Conc 32.4 g/dL (31.5-36.5); Mean Corpuscular Volume 94 fL (80-100); NEUTROPHILS ABSOLUTE AUTO 10.37 K/mm3 (1.96-9.15); NEUTROPHILS PERCENT AUTO 76 % (41-73); NRBC ABSOLUTE 0.39 K/mm3 (0.00-0.02); NRBC Auto 2.8 /100 WBC (0.0-0.2); Platelet Count 59 K/mm3 (150-400); RDW Coefficient Variation 14.5 % (11.7-14.2); RDW Standard Deviation 48.4 fL (35.1-46.3); White Blood Cell Count 13.73 K/mm3 (4.00-11.30)
[2021-03-18 06:12] LABS: Albumin, Blood 3.4 g/dL (3.4-5.0); Albumin/Globulin Ratio 0.9 (0.8-1.8); Bilirubin, Total 1.2 mg/dL (0.1-1.0); Bun/Creatinine Ratio 21.7 (12.0-20.0); Calcium, Blood 8.7 mg/dL (8.5-10.1); Creatinine, Blood 4.52 mg/dL (0.40-1.00); Globulin, Blood 3.6 g/dL (2.2-4.0); Potassium, Blood 5.5 mmol/L (3.5-5.5)
[2021-03-18 06:25] LABS: Mean Platelet Volume 13.8 fL (9.1-12.4)
--- NOTE | 2021-03-18 06:44 | NUR ---
SHIFT SUMMARY PT IS A 76 Y/O FEMALE, ADMITTED FOR AFIB C RVR. SHE IS A&O X 3, LEGALLY BLIND, 1PA TO THE BATHROOM. TELE SHOWED NSR C PVCS IN THE 60S. VITAL SIGNS OTHERWISE STABLE. NO C/O ACUTE PAIN, NAUSEA OR SOB. VITAL SIGNS STABLE. NO ACUTE CHANGES IN PT CONDITION NOTED DURING THE NIGHT. WILL CONTINUE TO MONITOR AND TREAT PER EMAR UNTIL HAND OFF TO DAY SHIFT RN.
[2021-03-18 15:44] LABS: Anion Gap 10 mmol/L (6-16); Blood Urea Nitrogen 106 mg/dL (8-24); Bun/Creatinine Ratio 22.8 (12.0-20.0); CO2, Blood 20 mmol/L (21-32); CPK Creatine Kinase 96 U/L (26-193); Calcium, Blood 8.4 mg/dL (8.5-10.1); Chloride, Blood 100 mmol/L (98-108); Creatinine, Blood 4.65 mg/dL (0.40-1.00); Glomerular Filtration Rate 10 (60-); Glucose, Blood 261 mg/dL (70-99); Phosphorus, Blood 5.3 mg/dL (2.5-4.9); Potassium, Blood 5.3 mmol/L (3.5-5.5); Sodium, Blood 130 mmol/L (136-145)
--- NOTE | 2021-03-18 18:27 | NUR ---
PT IS A/OX3, PLEASANT AND COOPERATIVE, THE PT TODAY SEEMED MORE SOMULANT AND REPORTED FEELING TIERED, THE PT DECLINED TO GET UP FOR BREAKFAST THIS AM, THE PT DECLINED TO WORK WITH OCCUPATIONAL THERAPY TODAY, THE PT HAS A POOR APPETITE AND WAS GIVEN ZOFRAN FOR NAUSEA X2, THE PT DENIED ANY PAIN, THE PTS DAUGHTER WAS AT THE BEDSIDE FOR SVERAL HOURS TODAY, CALL LIGHT IN REACH, WILL CONTINUE TO MONITOR AND ASSESS FOR CHANGES, PT URINATED X1 TODAY ONLY INCONTNENT, ATTENDS CHANGED AND THE PT WAS BLADDER SCANED WHICH SHOWED 288 CC RESIDUAL
--- NOTE | 2021-03-19 04:40 | NUR ---
SHIFT SUMMARY ADMITTED FOR AFIB W/RVR. DNR CODE. PLAN IS FOR DC HOME TODAY WITH [facility]. WAS ON DIALYSIS, LEFT ARM HAS FISTULA. SHE IS PACED. ACHS GLUCOSE CHECKS. LEGALLY BLIND, PROSTHETIC LEFT EYE. 1 ASSIST TO BSC. NO NEW CONCERNS THIS SHIFT
[2021-03-19 06:06] LABS: Anion Gap 10 mmol/L (6-16); Blood Urea Nitrogen 110 mg/dL (8-24); Bun/Creatinine Ratio 23.2 (12.0-20.0); CO2, Blood 22 mmol/L (21-32); Calcium, Blood 8.3 mg/dL (8.5-10.1); Chloride, Blood 98 mmol/L (98-108); Creatinine, Blood 4.75 mg/dL (0.40-1.00); Glomerular Filtration Rate 10 (60-); Glucose, Blood 152 mg/dL (70-99); Phosphorus, Blood 5.1 mg/dL (2.5-4.9); Sodium, Blood 130 mmol/L (136-145)
--- NOTE | 2021-03-19 10:25 | NUR ---
Brief supportive visit this AM. Pt denies pain and dyspnea at this time. Pt reports mild nausea and recently received antinausea medication. Pt reports being in agreement with plan to D/C home with hospice today. Pt expresses appreciation of visit and reports no concerns at this time. Palliative Care will remain available.
--- NOTE | 2021-03-19 15:24 | NUR ---
Pt and family meeting this afternoon. Pt resting in bed upon arrival. Pt's daughter Maddie, Pt's ex daughter in law at bedside with Pt's granddaughter on facetime. Discussed goals of care and relayed Dr Mccurdy's recommendations. Offered therapeutic listening and answered questions. Discussed the importance of considering goals and values. Pt reports she is undecided and would like to consider her options more. Spoke with Caremanager Kylie and discussed case. Kylie discusses options for home with homehealth while Pt is deciding. Pt and family are agreeable. Pt and family express appreciation and report no other concerns. Kylie will relay plan to hospitalist. Palliative Care will remain available.
--- NOTE | 2021-03-19 18:24 | NUR ---
SHIFT SUMMARY PT HAS DECIDED TO NOT DO HOSPICE AND TRY DIALYSIS. NO DIALYSIS ORDERED AT THIS TIME. PT HAS HAD NAUSEA THIS SHIFT WITH AN EPISODE OF EMESIS THIS AM AFTER BREAKFAST. ZOFRAN ADMINISTERED X2. PT HAS BEEN SLEEPING A LOT AND HAS NOT WANTED TO EAT LUNCH OR DINNER. NO ACUTE CHANGES AT THIS TIME. CALL LIGHT IN REACH. WILL CONTINUE TO MONITOR AND REPORT TO ONCOMING RN.
[2021-03-20 05:24] LABS: BASOPHILS ABSOLUTE AUTO 0.01 K/mm3 (0.00-0.23); BASOPHILS PERCENT AUTO 0 % (0-2); EOSINOPHILS ABSOLUTE AUTO 0.14 K/mm3 (0.00-0.68); EOSINOPHILS PERCENT AUTO 1 % (0-6); Hematocrit 36.6 % (33.0-51.0); IMMATURE GRAN ABSOLUTE AUTO 0.07 K/mm3 (0.00-0.10); IMMATURE GRAN PERCENT AUTO 1 % (0-1); LYMPHOCYTES ABSOLUTE AUTO 1.45 K/mm3 (0.84-5.20); LYMPHOCYTES PERCENT AUTO 15 % (21-46); MONOCYTES PERCENT AUTO 8 % (4-13); Mean Corpuscular HGB Conc 32.8 g/dL (31.5-36.5); Mean Corpuscular Volume 92 fL (80-100); Mean Platelet Volume 12.7 fL (9.1-12.4); NEUTROPHILS ABSOLUTE AUTO 7.36 K/mm3 (1.96-9.15); NEUTROPHILS PERCENT AUTO 75 % (41-73); NRBC ABSOLUTE 0.13 K/mm3 (0.00-0.02); NRBC Auto 1.3 /100 WBC (0.0-0.2); Platelet Count 65 K/mm3 (150-400); RDW Coefficient Variation 14.7 % (11.7-14.2); RDW Standard Deviation 47.4 fL (35.1-46.3); White Blood Cell Count 9.83 K/mm3 (4.00-11.30)
--- NOTE | 2021-03-20 05:29 | NUR ---
SHIFT SUMMARY ADMITTED FOR AFIB W/RVR. DNR CODE. PLAN IS FOR RESUMPTION OF DIALYSIS, FISTULA ON LEFT ARM. DR SHIPMAN IS RENAL CONSULT. PACEMAKER IN PLACE. SHE IS LIKELY TO DC W/HH. SHE IS LEGALLY BLIND AND HER LEFT EYE IS PROSTHETIC. SHE IS A 1 ASSIST W/FWW TO [facility]. SHE IS A&O X3
[2021-03-20 05:50] LABS: Albumin, Blood 3.2 g/dL (3.4-5.0); Anion Gap 10 mmol/L (6-16); Blood Urea Nitrogen 112 mg/dL (8-24); Bun/Creatinine Ratio 22.4 (12.0-20.0); CO2, Blood 22 mmol/L (21-32); Calcium, Blood 8.7 mg/dL (8.5-10.1); Chloride, Blood 99 mmol/L (98-108); Creatinine, Blood 5.01 mg/dL (0.40-1.00); Glomerular Filtration Rate 9 (60-); Glucose, Blood 155 mg/dL (70-99); Phosphorus, Blood 5.6 mg/dL (2.5-4.9); Potassium, Blood 4.6 mmol/L (3.5-5.5); Sodium, Blood 131 mmol/L (136-145)
--- NOTE | 2021-03-20 10:37 | NUR ---
PT TAKEN DOWN TO DIALYSIS @ APPROX 4810.
--- NOTE | 2021-03-20 18:07 | NUR ---
SHIFT SUMMARY NO ACUTE CHANGES, A&O, COOPERATIVE c CARE. PT DENIES ANY DISTRESS THIS SHIFT. BP STILL HYPOTENSIVE, METOPROLOL HELD THIS AM. FISTULA INFILTRATED DURING DIALYSIS SO TX WAS UNABLE TO BE COMPLETED. WILL REATTEMPT TOMORROW AND POSSIBLY PLACE PERMA CATH. PT HAS GOOD APPETITE TODAY. INCONT OF URINE T/O SHIFT. REPORTS NO BM IN FEW DAYS, BOWEL CARE ORDERED. PT IS CURRENTLY SITTING UP IN BED EATING DINNER, CALL LIGHT WITHIN REACH. HEEL PROTECTORS PLACED ON HEELS DUE TO REDNESS NOTED AND PT REPORTING SOME DISCOMFORT.
--- NOTE | 2021-03-21 05:02 | NUR ---
SHIFT SUMMARY ADMITTED FOR AFIB W/RVR. DNR CODE. PLAN IS FOR ANOTHER ATTEMPT AT DIALYSIS TODAY, YESTERDAY HER FISTULA INFILTRATED. IF DIALYSIS FAILS TODAY, A PERMACATH PLACEMENT MAY BE CONSIDERED. SHE IS A 1 ASSIST TO BS. SHE SEEMS VERY WEAK AND FRAIL. SHE RUNS HYPOTENSIVE AT TIMES. TELEMETRY: PACED W/BBB & 1ST DEG HB @ 63 BPM. MEDS ARE BETTER GIVEN ONE AT A TIME. DR SHIPMAN IS RENAL CONSULT. SHE IS LEGALLY BLIND AND HAS A PROSTHETIC EYE
[2021-03-21 07:13] LABS: HBSAG SCREEN Negative (Negative); HEP A AB, IGM Negative (Negative); HEP B CORE AB, IGM Negative (Negative); HEP B CORE AB, TOT Negative (Negative); HEP C VIRUS AB <0.1 (0.0-0.9)
--- NOTE | 2021-03-21 09:16 | NUR ---
PT TAKEN DOWN TO DIALYSIS VIA BED BY NURSE AND SECURITY OPERATIONS CENTER OPERATOR @ APPROX 0943.
[2021-03-21 14:47] LABS: SARS-Cov-2 (COVID-19) PCR, MMC NEGATIVE (NEGATIVE)
--- NOTE | 2021-03-21 18:11 | NUR ---
SHIFT SUMMARY NO ACUTE CHANGES, A&O, CALM AND COOPERATIVE. DIALYSIS COMPLETED TODAY, FISTULA WORKED APPROPRIATELY. AM BP MEDS HELD DUE TO VS AND DIALYSIS. PT HAS LITTLE URINE OUTPUT R/T DIAYSIS AND KIDNEY FUNCTION, BLADDER SCAN COMPLETED, 242 NOTED AND DOCUMENTED. NO BM THIS SHIFT, BOWEL CARE STARTED LAST SHIFT. PT DID NOT WANT TO GET UP MUCH TODAY, SHE STATED DIALYSIS EXHAUSTED HER. SHE HAS SLEPT A MAJORITY OF THE DAY. PT WAS HIGHLY ENCOURAGED TO GET UP FOR MEALS BUT FELT TIRED. PT STATES SHE WILL TOMORROW, WILL PASS THIS INFORMATION ONTO ONCOMING NURSE. PT IS RESTING IN BED WATCHING TV AND EATING DINNER, CALL LIGHT WITHIN REACH. TALKED WITH DAUGHTER THIS AFTERNOON, SHE STATED SHE IS CONCERNED WITH DISCHARGE DUE TO [employer] COMING TO CHART CALCULATOR PT'S BED AND NOW SHE DOES NOT HAVE ONE. INFORMED DAUGHTER THAT MESSAGE WILL BE RELAYED AND SHE CAN CALL AFTER 10 TOMORROW TO DISCUSS OPTIONS AND CONCERNS WITH CASE MANAGEMENT.
[2021-03-22 04:53] LABS: Albumin, Blood 2.9 g/dL (3.4-5.0); Anion Gap 7 mmol/L (6-16); Blood Urea Nitrogen 65 mg/dL (8-24); Bun/Creatinine Ratio 21.9 (12.0-20.0); CO2, Blood 29 mmol/L (21-32); Calcium, Blood 8.2 mg/dL (8.5-10.1); Chloride, Blood 100 mmol/L (98-108); Creatinine, Blood 2.97 mg/dL (0.40-1.00); Glomerular Filtration Rate 16 (60-); Glucose, Blood 171 mg/dL (70-99); Phosphorus, Blood 3.5 mg/dL (2.5-4.9); Sodium, Blood 136 mmol/L (136-145)
--- NOTE | 2021-03-22 05:12 | NUR ---
SHIFT SUMMARY NO ACUTE CHANGES THIS SHIFT, NO C/O ANY KIND, SLEPT T/O THE NIGHT, BP'S REMAIN LOW (AM 102/51), SLEEPING AT THIS TIME, CALL LIGHT IN REACH, BED ALARM ACTIVE, WILL CONT TO MONITOR UNTIL REPORT GIVEN TO DAY RN.
--- NOTE | 2021-03-22 17:56 | NUR ---
PT IS A/OX3, PLEASANT AND COOPERATIVE, THE PT IS UP WITH MINIMAL ASSIST TO THE CHAIR FOR MEALS, THE PT WAS GIVEN A BEDBATH BY THE FISHERY BIOLOGIST EARLIER TODAY, THE PT DENIED ANY PAIN T/O THE DAY, THE PT APPEARS TO BE BREATHING EASILY ON RA AT THIS TIME, PTS DAUGHTER WAS IN TO SEE HER TODAY, CALL LIGHT IN REACH, WILL CONTINUE TO MONITOR AND ASSESS FOR CHANGES
--- NOTE | 2021-03-23 05:37 | NUR ---
SHIFT SUMMARY NO ACUTE CHANGES THIS SHIFT, NO C/O ANY KIND, SLEPT T/O THE NIGHT & SLEEPING AT THIS TIME, CALL LIGHT IN REACH, BED ALARM ACTIVE, WILL CONT TO MONITOR UNTIL REPORT GIVEN TO DAY RN.
[2021-03-23 10:14] LABS: Albumin, Blood 2.8 g/dL (3.4-5.0); Anion Gap 7 mmol/L (6-16); Blood Urea Nitrogen 69 mg/dL (8-24); Bun/Creatinine Ratio 22.7 (12.0-20.0); CO2, Blood 28 mmol/L (21-32); Calcium, Blood 8.5 mg/dL (8.5-10.1); Chloride, Blood 99 mmol/L (98-108); Creatinine, Blood 3.04 mg/dL (0.40-1.00); Glomerular Filtration Rate 16 (60-); Glucose, Blood 171 mg/dL (70-99); Phosphorus, Blood 3.5 mg/dL (2.5-4.9); Potassium, Blood 4.1 mmol/L (3.5-5.5); Sodium, Blood 134 mmol/L (136-145)
[2021-03-23 10:21] LABS: BASOPHILS ABSOLUTE AUTO 0.02 K/mm3 (0.00-0.23); BASOPHILS PERCENT AUTO 0 % (0-2); EOSINOPHILS ABSOLUTE AUTO 0.12 K/mm3 (0.00-0.68); EOSINOPHILS PERCENT AUTO 2 % (0-6); Hematocrit 34.4 % (33.0-51.0); Hemoglobin 10.9 g/dL (11.5-16.0); IMMATURE GRAN ABSOLUTE AUTO 0.02 K/mm3 (0.00-0.10); IMMATURE GRAN PERCENT AUTO 0 % (0-1); LYMPHOCYTES ABSOLUTE AUTO 1.03 K/mm3 (0.84-5.20); LYMPHOCYTES PERCENT AUTO 16 % (21-46); MONOCYTES ABSOLUTE AUTO 0.48 K/mm3 (0.16-1.47); MONOCYTES PERCENT AUTO 8 % (4-13); Mean Corpuscular HGB 29.5 pg (26.0-34.0); Mean Corpuscular HGB Conc 31.7 g/dL (31.5-36.5); Mean Corpuscular Volume 93 fL (80-100); Mean Platelet Volume 12.7 fL (9.1-12.4); NEUTROPHILS ABSOLUTE AUTO 4.62 K/mm3 (1.96-9.15); NEUTROPHILS PERCENT AUTO 74 % (41-73); NRBC ABSOLUTE 0.03 K/mm3 (0.00-0.02); NRBC Auto 0.5 /100 WBC (0.0-0.2); Platelet Count 69 K/mm3 (150-400); RDW Coefficient Variation 14.6 % (11.7-14.2); RDW Standard Deviation 48.9 fL (35.1-46.3); White Blood Cell Count 6.29 K/mm3 (4.00-11.30)
--- NOTE | 2021-03-23 16:54 | NUR ---
PT IS A/OX3, PLEASANT AND COOPERATIVE, UP WITH MINIMAL ASSIST, THE PT WAS MEDICATED FOR NAUSEA AT BREAKFAST AND AFTER LUNCH TODAY. THE PT HAD DIALYSIS TODAY AND APPEARS TO HAVE TOLERATED THAT WELL, PT APPEARS TO BE BREATHING EASILY ON RA AT THIS TIME, THE PT DENIED ANY PAIN TODAY, CALL LIGHT IN REACH, WILL CONTINUE TO MONITOR AND ASSESS FOR CHANGES
--- NOTE | 2021-03-24 07:54 | NUR ---
SHIFT SUMMARY NO ACUTE CHANGES THIS SHIFT, NO C/O ANY KIND, BEDRESTING WATCHING TV AT THIS TIME, CALL LIGHT IN REACH, REPORT GIVEN TO DAY RN.
--- NOTE | 2021-03-24 16:55 | NUR ---
SHIFT SUMMARY- PT A/OX4, PLEASANT AND COOPERATIVE. PT DENIES ANY COMPLAINTS T/O THE DAY. LS CLEAR/ DIMINISHED ON ROOM AIR. PT REMAINS HYPOTENSION WITH SBP IN THE 90'S BUT ASYMPTOMATIC. PT REPORTS ONLY MILD NAUSEA THIS AM BUT EATING WELL TODAY. PT CAN REPSOITION SELF IN BED AND A 1 ASSIST UP TO BSC WITH FWW AND GB. PT AWAITING HEP PANEL COMPLETION FOR DAVITA, POSSIBLE D/C HOME TOMORROW. STILL NO BM TODAY, PT AGREED TO TAKE COLACE BUT REFUSED MIRALAX. WILL REATTEMPT MIRALAX THIS EVENING. NO OTHER ACUTE CHANGES THIS SHIFT.
--- NOTE | 2021-03-25 07:17 | NUR ---
HARBOR MASTER SUMMARY PT A/O X4. PLEASANT AND COOPERATIVE. INCONTIENT/CONTIENT TO BLADDER. ATTENDS IN PLACE. ROOM AIR MAINTAINING GOOD 02 SATS. DENIES SOB, PAIN, NAUSEA. NO ACUTE CHANGES. CALL LIGHT WITHIN REACH, BED ALARM ON, REPORT GIVEN TO ONCOMING RN.
--- NOTE | 2021-03-25 13:25 | NUR ---
DIALYSIS PT ASKED TO COME OF TREATMENT. TOLD HER SHE NEEDED THE TREATMENT. SHE SAID THAT SHE WASN'T FEELING WELL AND THOUGHT IT MAYBE HER BLOOD SUGAR/BP ( BS HAD BEEN TAKEN BY THE EMS MANAGER A LITTLE EARILER). BP TAKEN EVERY 15 MIN. TOLD HER IT WOULD BE GOOD FOR HER TO STAY ON. SHE SAID THAT SHE WANTED OFF. DC'ED TX. I'M TOLD THAT SHE DID THE SAME THING LAST TX. THEY AGREED TO SHORTEN IT BY 30 MIN.
[2021-03-25] MEDS ORDERED: Amiodarone HCl200 MG PO (14:45)
[2021-03-25] MEDS ORDERED: METO25ER PO (14:45)
--- NOTE | 2021-03-25 17:31 | NUR ---
1610: DISCHARGED HOME WITH ALL BELONGINGS AND DAUGHTER PRESENT FOR EDUCATION. TEACHBACK METHOD UTILIZED AND ALL QUESTIONS ANSWERED.
== END 2021-03-25 16:08 | disposition home health service (06) | DRG 682 ==
LOC: ER 17:54 → PCU 17:55 → MEDS 03-14 10:57 → PCU 03-14 10:58 → MEDS 03-16 10:33
PROVIDERS: Family Medicine; Hospitalist; Internal Medicine; Student in an Organized Health Care Education/Training Program; ADMIT Internal Medicine
PROC: 5A1D70Z Performance of Urinary Filtration, Intermittent, Less than 6 Hours Per Day (ICD-10-PCS; principal; 2021-03-18)
DX: N17.0 Acute kidney failure with tubular necrosis (principal); I50.23 Acute on chronic systolic (congestive) heart failure; E87.2 Acidosis; E87.1 Hypo-osmolality and hyponatremia; I13.2 Hypertensive heart and chronic kidney disease with heart failure and with stage 5 chronic kidney disease, or end stage renal disease; Z66 Do not resuscitate; N17.9 Acute kidney failure, unspecified; N18.4 Chronic kidney disease, stage 4 (severe); N18.6 End stage renal disease; I25.5 Ischemic cardiomyopathy; I48.0 Paroxysmal atrial fibrillation; E87.5 Hyperkalemia; E78.5 Hyperlipidemia, unspecified; I44.7 Left bundle-branch block, unspecified; E11.42 Type 2 diabetes mellitus with diabetic polyneuropathy; E11.65 Type 2 diabetes mellitus with hyperglycemia; R79.89 Other specified abnormal findings of blood chemistry; E11.319 Type 2 diabetes mellitus with unspecified diabetic retinopathy without macular edema; E83.39 Other disorders of phosphorus metabolism; E11.22 Type 2 diabetes mellitus with diabetic chronic kidney disease; D69.6 Thrombocytopenia, unspecified; D72.829 Elevated white blood cell count, unspecified; D63.1 Anemia in chronic kidney disease; I25.10 Atherosclerotic heart disease of native coronary artery without angina pectoris; Z79.82 Long term (current) use of aspirin; Z79.02 Long term (current) use of antithrombotics/antiplatelets; Z79.4 Long term (current) use of insulin; Z79.899 Other long term (current) drug therapy; Z95.810 Presence of automatic (implantable) cardiac defibrillator; Z88.2 Allergy status to sulfonamides; Z88.4 Allergy status to anesthetic agent; Z90.49 Acquired absence of other specified parts of digestive tract; Z90.710 Acquired absence of both cervix and uterus; Z98.890 Other specified postprocedural states; Z95.1 Presence of aortocoronary bypass graft
CPT/HCPCS: 36415; 71045; 76770; 80048; 80053; 80069; 80074; 81001; 82550; 82607; 82746; 82947; 83735; 83880; 84100; 84132; 84443; 84484; 85025; 85730; 86317; 86704; 86708; 86803; 87040; 87086; 87340; 93005; 93010; 96374; 96375; 96376; 99285-25; A9270; C8929; C9113; G0378; J0282; J0610; J0696; J1644; J1815; J1940; J2405; J3010; J7030; J7040; J7060; J7070; Q9957; U0004

== ENCOUNTER → 2021-05-23 | Outpatient (CLI) | payer OTHER ==
[~2021-05-23] MED LIST changes: +Amiodarone HCl200 MG PO; +METO25ER PO; +TORS10 PO
[2021-05-23 13:30] LABS: Source, Urine Clean Catch
[2021-05-23 15:27] LABS: Appearance, Urine Cloudy (Clear); Bilirubin, Urine Neg (Neg); Blood, Urine 4+ (Neg); Color, Urine Yellow (P-Yellow); Glucose Qualitative, Urine Neg (Neg); Ketones, Urine Neg (Neg); Leukocyte Esterase, Urine 3+ (Neg); Nitrite, Urine Neg (Neg); Protein, Urine 1+ (Neg); Urobilinogen, Urine NORM (Normal)
[2021-05-23 15:55] LABS: White Blood Cells, Urine 50-100 /hpf (0-5)
[2021-05-23 15:56] LABS: Bacteria Many /hpf; Squamous Epithelial Cells Few /hpf (Few)
== END | disposition home or self-care (01) ==
LOC: LAB 11:00 → LAB SHORT 11:00
PROVIDERS: Physician Assistant Medical
DX: N30.01 Acute cystitis with hematuria (principal)
CPT/HCPCS: 81001; 87077; 87086; 87186

== ENCOUNTER 2021-06-18 16:55 | Emergency (ER) | payer OTHER ==
[~2021-06-18] VITALS: Ht 152.4 cm; Wt 77.1 kg
[~2021-06-18 16:55] MED LIST changes: +ALPRAZOLAM0.5 M1 PO; +Bumetanide2 MG PO; +CEFP200 PO; +ELIQUIS5 M3 PO; +MIDODRINE HCL PO; +OMEP20ER PO; +ZOFRAN4 MG PO
== END 2021-06-18 18:50 | disposition home or self-care (01) ==
LOC: ER 16:55
DX: R58 Hemorrhage, not elsewhere classified (principal); I13.0 Hypertensive heart and chronic kidney disease with heart failure and stage 1 through stage 4 chronic kidney disease, or unspecified chronic kidney disease; E11.22 Type 2 diabetes mellitus with diabetic chronic kidney disease; N18.5 Chronic kidney disease, stage 5; I50.9 Heart failure, unspecified; I25.10 Atherosclerotic heart disease of native coronary artery without angina pectoris; E78.00 Pure hypercholesterolemia, unspecified; I48.91 Unspecified atrial fibrillation; Z88.2 Allergy status to sulfonamides; Z88.6 Allergy status to analgesic agent; Z79.899 Other long term (current) drug therapy; Z79.4 Long term (current) use of insulin; Z79.01 Long term (current) use of anticoagulants
CPT/HCPCS: 73090; 99283-25

== ENCOUNTER 2021-06-24 09:21 | Day surgery (SDC) | payer OTHER | END 2021-06-24 23:09 | disposition home or self-care (01) | LOC: WOUND 09:21 | DX: L89.312 Pressure ulcer of right buttock, stage 2 (principal); L89.320 Pressure ulcer of left buttock, unstageable; Z74.09 Other reduced mobility; Z88.2 Allergy status to sulfonamides | CPT/HCPCS: A9270; G0463 ==

== ENCOUNTER 2021-07-01 01:33 | Day surgery (SDC) | payer OTHER | END 2021-07-01 23:03 | disposition home or self-care (01) | LOC: WOUND 01:33 | DX: L89.312 Pressure ulcer of right buttock, stage 2 (principal); L89.320 Pressure ulcer of left buttock, unstageable; Z74.09 Other reduced mobility; Z88.2 Allergy status to sulfonamides; Z88.4 Allergy status to anesthetic agent | CPT/HCPCS: A9270; G0463 ==

== ENCOUNTER 2021-07-10 14:09 | Inpatient (IN) | payer OTHER ==
[~2021-07-10] VITALS: Ht 152.4 cm; Wt 77.6 kg
[2021-07-10 14:50] LABS: BASOPHILS ABSOLUTE AUTO 0.02 K/mm3 (0.00-0.23); BASOPHILS PERCENT AUTO 0 % (0-2); EOSINOPHILS ABSOLUTE AUTO 0.02 K/mm3 (0.00-0.68); EOSINOPHILS PERCENT AUTO 0 % (0-6); Hematocrit 34.9 % (33.0-51.0); IMMATURE GRAN ABSOLUTE AUTO 0.01 K/mm3 (0.00-0.10); IMMATURE GRAN PERCENT AUTO 0 % (0-1); LYMPHOCYTES ABSOLUTE AUTO 0.95 K/mm3 (0.84-5.20); LYMPHOCYTES PERCENT AUTO 16 % (21-46); MONOCYTES PERCENT AUTO 7 % (4-13); Mean Corpuscular HGB 30.3 pg (26.0-34.0); Mean Corpuscular HGB Conc 31.5 g/dL (31.5-36.5); Mean Corpuscular Volume 96 fL (80-100); Mean Platelet Volume 11.5 fL (9.1-12.4); NEUTROPHILS ABSOLUTE AUTO 4.63 K/mm3 (1.96-9.15); NEUTROPHILS PERCENT AUTO 77 % (41-73); Platelet Count 109 K/mm3 (150-400); RDW Coefficient Variation 17.6 % (11.7-14.2); RDW Standard Deviation 60.3 fL (35.1-46.3); Red Blood Cell Count 3.63 M/mm3 (3.80-5.20); White Blood Cell Count 6.03 K/mm3 (4.00-11.30)
[2021-07-10 15:21] LABS: Alanine Aminotransfer (ALT/SGP 13 U/L (12-78); Albumin, Blood 2.7 g/dL (3.4-5.0); Albumin/Globulin Ratio 0.7 (0.8-1.8); Alk Phos 53 U/L (50-136); Anion Gap 7 mmol/L (6-16); Aspartate Aminotrans (AST/SGOT 19 U/L (12-37); Bilirubin, Total 1.6 mg/dL (0.1-1.0); Blood Urea Nitrogen 40 mg/dL (8-24); Bun/Creatinine Ratio 14.7 (12.0-20.0); CO2, Blood 27 mmol/L (21-32); Chloride, Blood 102 mmol/L (98-108); Creatinine, Blood 2.72 mg/dL (0.40-1.00); Glomerular Filtration Rate 17 (60-); Glucose, Blood 229 mg/dL (70-99); Potassium, Blood 3.9 mmol/L (3.5-5.5); Sodium, Blood 136 mmol/L (136-145); Total Protein, Blood 6.7 g/dL (6.4-8.2); Troponin I <0.015 ng/mL (0.000-0.040)
[2021-07-10 18:22] LABS: SARS-Cov-2 (COVID-19) PCR, MMC NEGATIVE (NEGATIVE)
[2021-07-10] MEDS ORDERED: BUME1 PO (20:34)
[2021-07-10] MEDS ORDERED: BUMETANIDE2 M5 PO (20:34)
[2021-07-10] MEDS ORDERED: ELIQUIS5 M2 PO (20:34)
[2021-07-10] MEDS ORDERED: PLAVIX75 MG PO (20:35)
[2021-07-10] MEDS ORDERED: METOPROLOL SUCC25 MG PO (20:36)
[2021-07-10] MEDS ORDERED: SYNTHROID50 MC1 PO (20:37)
[2021-07-10] MEDS ORDERED: ATOR40TA PO (20:37)
[2021-07-10] MEDS ORDERED: KLOR-CON 1010 ME1 PO (20:39)
[2021-07-11 01:43] LABS: BASOPHILS ABSOLUTE AUTO 0.01 K/mm3 (0.00-0.23); BASOPHILS PERCENT AUTO 0 % (0-2); EOSINOPHILS ABSOLUTE AUTO 0.04 K/mm3 (0.00-0.68); EOSINOPHILS PERCENT AUTO 1 % (0-6); Hematocrit 36.4 % (33.0-51.0); Hemoglobin 11.6 g/dL (11.5-16.0); IMMATURE GRAN ABSOLUTE AUTO 0.04 K/mm3 (0.00-0.10); IMMATURE GRAN PERCENT AUTO 1 % (0-1); LYMPHOCYTES ABSOLUTE AUTO 0.78 K/mm3 (0.84-5.20); LYMPHOCYTES PERCENT AUTO 14 % (21-46); MONOCYTES ABSOLUTE AUTO 0.36 K/mm3 (0.16-1.47); MONOCYTES PERCENT AUTO 6 % (4-13); Mean Corpuscular HGB 30.2 pg (26.0-34.0); Mean Corpuscular HGB Conc 31.9 g/dL (31.5-36.5); Mean Corpuscular Volume 95 fL (80-100); Mean Platelet Volume 11.5 fL (9.1-12.4); NEUTROPHILS ABSOLUTE AUTO 4.53 K/mm3 (1.96-9.15); NEUTROPHILS PERCENT AUTO 79 % (41-73); Platelet Count 119 K/mm3 (150-400); RDW Coefficient Variation 17.5 % (11.7-14.2); Red Blood Cell Count 3.84 M/mm3 (3.80-5.20); White Blood Cell Count 5.76 K/mm3 (4.00-11.30)
[2021-07-11 01:46] LABS: Albumin, Blood 2.9 g/dL (3.4-5.0); Anion Gap 6 mmol/L (6-16); Blood Urea Nitrogen 44 mg/dL (8-24); Bun/Creatinine Ratio 15.8 (12.0-20.0); CO2, Blood 32 mmol/L (21-32); Calcium, Blood 9.3 mg/dL (8.5-10.1); Chloride, Blood 100 mmol/L (98-108); Creatinine, Blood 2.79 mg/dL (0.40-1.00); Glomerular Filtration Rate 17 (60-); Glucose, Blood 179 mg/dL (70-99); Phosphorus, Blood 3.2 mg/dL (2.5-4.9); Potassium, Blood 3.6 mmol/L (3.5-5.5); Sodium, Blood 138 mmol/L (136-145)
--- NOTE | 2021-07-11 06:43 | NUR ---
PATIENT IS ASLEEP LYING IN BED. PATIENT HAS PRESSURE ULCERS ON BUTTOCKS AND R HEEL, PT HAS BEEN TURNED AND REPOSITIONED Q2. RR EVEN AND UNLABORED. NO APPARENT NEEDS. PT IS VISUALLY IMPAIRED, CALL LIGHT IN HAND, BED ALARM ON AND BED IN LOW POSITION.
--- NOTE | 2021-07-11 16:28 | NUR ---
SHIFT SUMMARY PT IS AOX4 AND PLEASANT. PT DENIES PAIN, N/V, SOB. PT APPETITE IS MODERATE. PT'S DAUGHTER IN TO VISIT THIS CABRERA. PT EVALUATED BY DR. SHIPMAN AND DIALYSIS TODAY. FISTULA DOES NOT WORK, SO PROCEDURE WILL BE SCHEDULED FOR PERMACATH PLACEMENT. TELE RUNNING PACED. PT IS ONE ASSIST TO BCC AND PT/OT WORKED WITH PT. PT IS IN BED, CALL LIGHT IN REACH, LOW POSITION.
--- NOTE | 2021-07-11 22:47 | NUR ---
DIALYSIS AT 1310 WENT TO ROOM WITH DIALYSIS MACHINE. UNABLE TO ACCESS HER FISTULA. CALLED DR SHIPMAN AND INFORMED. NOTIFIED HER NURSE. CALLED TO ICU TO DIALYSIS ANOTHER PT.
[2021-07-12 04:59] LABS: BASOPHILS ABSOLUTE AUTO 0.01 K/mm3 (0.00-0.23); BASOPHILS PERCENT AUTO 0 % (0-2); EOSINOPHILS ABSOLUTE AUTO 0.07 K/mm3 (0.00-0.68); EOSINOPHILS PERCENT AUTO 2 % (0-6); Hematocrit 34.7 % (33.0-51.0); Hemoglobin 11.1 g/dL (11.5-16.0); IMMATURE GRAN ABSOLUTE AUTO 0.01 K/mm3 (0.00-0.10); IMMATURE GRAN PERCENT AUTO 0 % (0-1); LYMPHOCYTES PERCENT AUTO 22 % (21-46); MONOCYTES ABSOLUTE AUTO 0.36 K/mm3 (0.16-1.47); MONOCYTES PERCENT AUTO 8 % (4-13); Mean Corpuscular HGB 30.7 pg (26.0-34.0); Mean Corpuscular Volume 96 fL (80-100); Mean Platelet Volume 11.4 fL (9.1-12.4); NEUTROPHILS ABSOLUTE AUTO 3.12 K/mm3 (1.96-9.15); NEUTROPHILS PERCENT AUTO 68 % (41-73); Platelet Count 120 K/mm3 (150-400); RDW Coefficient Variation 17.6 % (11.7-14.2); RDW Standard Deviation 61.4 fL (35.1-46.3); Red Blood Cell Count 3.61 M/mm3 (3.80-5.20); White Blood Cell Count 4.57 K/mm3 (4.00-11.30)
[2021-07-12 05:24] LABS: Albumin, Blood 2.6 g/dL (3.4-5.0); Anion Gap 3 mmol/L (6-16); Blood Urea Nitrogen 42 mg/dL (8-24); Bun/Creatinine Ratio 15.5 (12.0-20.0); CO2, Blood 32 mmol/L (21-32); Calcium, Blood 9.1 mg/dL (8.5-10.1); Chloride, Blood 101 mmol/L (98-108); Creatinine, Blood 2.71 mg/dL (0.40-1.00); Glomerular Filtration Rate 17 (60-); Glucose, Blood 93 mg/dL (70-99); Potassium, Blood 3.7 mmol/L (3.5-5.5); Sodium, Blood 136 mmol/L (136-145)
--- NOTE | 2021-07-12 06:38 | NUR ---
SHIFT SUMMARY PT IS A&OX4, I PERSON ASSIST.PT HAS A TELE PACEMAKER 77. PT'S FISTULA NOT WORKING, SO SHE HAS HAD NO DIALYSIS FOR 11 DAYS. PERMACATH TO BE INSTALLED ON WEDNESDAY. ADLS PROVIDED, SAFETY MEASURES IN PLACE. WILL CONTINUE TO MONITOR.
[2021-07-12 10:49] LABS: Source, Urine Clean Catch
[2021-07-12 11:05] LABS: Appearance, Urine Cloudy (Clear); Bilirubin, Urine Neg (Neg); Blood, Urine 2+ (Neg); Color, Urine Yellow (P-Yellow); Glucose Qualitative, Urine Neg (Neg); Ketones, Urine Neg (Neg); Leukocyte Esterase, Urine 2+ (Neg); Nitrite, Urine Neg (Neg); Protein, Urine Neg (Neg); Specific Gravity, Urine 1.015 (1.003-1.022); Urobilinogen, Urine NORM (Normal)
--- NOTE | 2021-07-12 11:07 | NUR ---
DAUGHTER UPDATED ON CONDITION.
[2021-07-12 11:22] LABS: Red Blood Cells, Urine 0-2 /hpf (0-2); Squamous Epithelial Cells Few /hpf (Few)
[2021-07-12 11:23] LABS: Bacteria Few /hpf
--- NOTE | 2021-07-12 16:59 | NUR ---
ALERT. ORIENTED. ONE PERSON ASSIST TO BSC. COOPERATIVE. OFF OXYGEN WITH SATS LOW 90'S. POSSIBLE PERMACATH PLACEMENT TOMORROW. FISTULA LEFT UPPER ARM NOT WORKING. NO THRILL. BRUISING T/O. TELE ON AND SR WITH FIRST DEGREE BLOCK. BUTTOCK SLIGHTLY PINK RT SIDE PILLOWS USED TO TURN Q 2 HOURS. WCTM
--- NOTE | 2021-07-13 04:13 | NUR ---
AAO. DENIES PAIN. RESP UNLABORED.ADLS PROVIDED. MEPILEX APPLIED TO RIGHT BUTTOCK ULCER. VSS. ATTENDS IN PLACE. NPO FOR PROCEDURE IN AM. WILL CONTINUE TO MONITOR.
--- NOTE | 2021-07-13 09:42 | NUR ---
DR. HOWARD IN ROOM TO TAKE PT TO PROCEDURE. ORDERS RECIEVED TO PULL 1000ML BAG OF NORMAL SALINE.
--- NOTE | 2021-07-13 10:57 | NUR ---
[facility]13[facility]21 [address] SPOKE WITH PTS DAUGHTER PRIOR TO PROCEDURE TO OBTAIN VERBAL CONSENT FOR ANESTHESIA, PTS DAUGHTER AGREED AND ANESTHESIA CONSENT SIGNED AND WITNESSED BY RN AND ANESTHESIA PROVIDER.
--- NOTE | 2021-07-13 11:19 | NUR ---
PACU REPORTED UNABLE TO PLACE PERMACATH AT THIS TIME. NOTIFED DIALYSIS NURSE WHO WILL NOTIFY PHYSICIAN. AWAITING PT RETURN TO ROOM
--- NOTE | 2021-07-13 11:43 | NUR ---
ARRIVAL TO UNIT PT ARRIVED FROM PACU AT 1135, TRANSFERED TO BED FROM [facility] WITH SLIDE SHEET. NEW SKIN TEAR PRESENT ON LEFT FOREARM, DRESSING APPLIED. PT DENIES PAIN OR NAUSEA, ON ROOM AIR. REPORTS FEELING TIRED. CURRENTLY RESTING IN BED WITH CALL LIGHT IN REACH. BANDAID APPLIED TO LEFT NECK FROM ATTEMPTED PLACEMENT, CURRENTLY CDI.
--- NOTE | 2021-07-13 16:40 | NUR ---
SHIFT SUMMARY NO ACUTE CHANGES SINCE ATTEMPTED PERMA CATH PLACEMENT. PT HAS BEEN NAPPING ON AND OFF DENIES ANY PAIN OR NAUSEA. HAS BEEN PLEASANT AND COOEPRATIVE. SOME FORGETFULLNESS AT TIMES. CALLS APPROPRIATLY. PLAN IS FOR POSSIBLE IR PLACEMENT TOMORROW. DIALYSIS NURSE NOTIFED OF NO ACCESS AT THIS TIME.
--- NOTE | 2021-07-14 04:24 | NUR ---
SHIFT SUMMARY PT AA&OX3. ABLE TO MAKE NEEDS KNOWN. NO ACUTE CHANGES ON THIS SHIFT. PT DENIES PAIN OR DISCOMFORT. MEDS ADMINISTERED PER EMAR. ADLS PROVIDED. SAFETY MEASURES IN PLACE. POSSIBLE PERMACATH PLACEMENT TODAY SINCE LAST ATTEMPT WAS UNSUCCESSFUL. WILL CONTINUE TO MONITOR.
--- NOTE | 2021-07-14 13:43 | NUR ---
PT TO PROCEDURE.
--- NOTE | 2021-07-14 14:17 | NUR ---
DAUGHTER IN PT'S ROOM
--- NOTE | 2021-07-14 15:38 | NUR ---
PT ARRIVED BACK TO [facility]IT FROM [facility] DAUGHTER AT BEDSIDE. VSS. PT DENIES PAIN, N/V OR SOB AT THIS TIME. PROVIDED ICE WATER AND MIKKI CRACKERS PER PT REQUEST. PERMACATH TO RCW. NO EDEMA NOTED AT THIS TIME.
--- NOTE | 2021-07-14 15:46 | NUR ---
NOTIFIED MABEL FROM DIALYSIS THAT PT IS BACK TO ROOM W/PERMACATH.
--- NOTE | 2021-07-14 17:08 | NUR ---
SUMMARY PT S/P PERMACATH TO RCW THIS SHIFT. DENIES PAIN AT THIS TIME. VSS. PT SAT UP IN CHAIR PRIOR TO GOING TO [facility]. RESTING IN BED AT THIS TIME, DAUGHTER AT BEDSIDE. SPOKE TO MABEL/MINER HELPER: PLAN FOR DIALYSIS THIS EVENING. DR VAZQUEZ STATED PLAN FOR DC TOMORROW.
--- NOTE | 2021-07-14 18:09 | NUR ---
SHADOWING NOTED TO PERMACATH DRESSING. SPOKE TO MABEL BERRY PICKER MACHINE OPERATOR. STATED WNL. LEAVE DRESSING IN PLACE.
--- NOTE | 2021-07-14 18:16 | NUR ---
MABEL, GENERAL FARM HAND AT BEDSIDE.
--- NOTE | 2021-07-15 04:45 | NUR ---
PT RESTING IN BED, SLEPT MOST OF THE NIGHT, REMAINS OREINTED X3-4 AND MAKES NO COMPLAINTS. Q4 NEURO CHECKS COMPLETE. PT NEEDS REMINDERS TO INCREASE FLUID INTAKE. BED IN LOW POSITION. STAFF WILL CONT TO MONITOR.
[2021-07-15] MEDS ORDERED: AMOX500 PO (09:40)
--- NOTE | 2021-07-15 13:00 | NUR ---
PATIENT D/C'D TO HOME WITH DAUGHTER. D/C INSTRUCTIONS AND EDUCATIONS DISCUSSED WITH PATIENT AND COPY PROVIDED. DAUGHTER TO MAKE F/U APPT WITH DR. REYNA AND DR. SHIPMAN. PATIENT DENIES ANY FURHTER QUESTIONS OR CONCERNS.
== END 2021-07-15 13:58 | disposition home or self-care (01) | DRG 189 ==
LOC: ER 14:09 → MEDS 22:55
PROVIDERS: Emergency Medicine; Family Medicine; Internal Medicine; ADMIT Internal Medicine
PROC: 0JH63XZ Insertion of Tunneled Vascular Access Device into Chest Subcutaneous Tissue and Fascia, Percutaneous Approach (ICD-10-PCS; principal; 2021-07-14)
PROC: 02HV33Z Insertion of Infusion Device into Superior Vena Cava, Percutaneous Approach (ICD-10-PCS; 2021-07-14)
PROC: 5A1D70Z Performance of Urinary Filtration, Intermittent, Less than 6 Hours Per Day (ICD-10-PCS; 2021-07-14)
DX: J96.01 Acute respiratory failure with hypoxia (principal); N18.6 End stage renal disease; I13.2 Hypertensive heart and chronic kidney disease with heart failure and with stage 5 chronic kidney disease, or end stage renal disease; T82.590A Other mechanical complication of surgically created arteriovenous fistula, initial encounter; I50.22 Chronic systolic (congestive) heart failure; N39.0 Urinary tract infection, site not specified; I25.5 Ischemic cardiomyopathy; Z20.822 Contact with and (suspected) exposure to COVID-19; I25.10 Atherosclerotic heart disease of native coronary artery without angina pectoris; E11.22 Type 2 diabetes mellitus with diabetic chronic kidney disease; E11.319 Type 2 diabetes mellitus with unspecified diabetic retinopathy without macular edema; E78.00 Pure hypercholesterolemia, unspecified; H54.8 Legal blindness, as defined in USA; E03.9 Hypothyroidism, unspecified; I48.91 Unspecified atrial fibrillation; Z88.2 Allergy status to sulfonamides; Z95.0 Presence of cardiac pacemaker; Z88.4 Allergy status to anesthetic agent; Z95.1 Presence of aortocoronary bypass graft; Z98.890 Other specified postprocedural states; Z86.718 Personal history of other venous thrombosis and embolism; Z86.73 Personal history of transient ischemic attack (TIA), and cerebral infarction without residual deficits; Z79.4 Long term (current) use of insulin; Z79.02 Long term (current) use of antithrombotics/antiplatelets; Z79.899 Other long term (current) drug therapy; Z79.01 Long term (current) use of anticoagulants; Z99.2 Dependence on renal dialysis; Y83.8 Other surgical procedures as the cause of abnormal reaction of the patient, or of later complication, without mention of misadventure at the time of the procedure; Z91.15 Patient's noncompliance with renal dialysis; L89.92 Pressure ulcer of unspecified site, stage 2; B95.2 Enterococcus as the cause of diseases classified elsewhere
CPT/HCPCS: 36415; 36558; 71045; 76937; 77001; 80053; 80069; 81001; 82947; 84145; 84484; 85025; 87077; 87086; 87186; 93005; 93010; 94762; 96365; 97110; 97116; 97161; 97165; 97530; 97535; 99152; 99153; 99285-25; A9270; C1750; C1769; C1894; J0690; J0696; J1644; J1815; J2001; J2250; J2405; J2704; J3010; J7030; J7040; U0004